=== PATIENT | female | born 1960 | race Two or more races ===

== ENCOUNTER 2017-10-20 18:45 | Inpatient (IN) | payer MEDICARE, MEDICAID ==
[~2017-10-20] VITALS: Ht 162.6 cm; Wt 88.5 kg
[2017-10-20] MEDS ORDERED: SODIUM CHLORIDE 0.9% 1,000 ML IV ONE (20:00)
[2017-10-20 20:28] LABS: CHLORIDE 96 mEq/L (98-107)
[2017-10-20 20:31] LABS: BASOPHILS % 0.4 % (0.0-2.0); EOSINOPHILS % 2.2 % (0.0-5.0); HEMATOCRIT. 34.9 % (36.0-48.0); HEMOGLOBIN. 11.8 g/dL (12.0-16.0); LYMPHOCYTES % 33.5 % (20.0-50.0); MEAN CORPUSCULAR HEMOGLOBIN 30.2 pg (28.0-32.0); MEAN PLATELET VOLUME 10.3 fl (7.4-10.4); MONOCYTES % 14.1 % (2.0-8.0); NEUTROPHILS % 49.8 % (40.0-76.0); PLATELET 204 x1000/uL (130-400); RED BLOOD CELL COUNT 3.92 mill/uL (4.2-5.4); RED CELL DISTRIBUTION WIDTH 13.1 % (11.6-14.6)
[2017-10-20 20:32] LABS: INR 2.7; PARTIAL THROMBOPLASTIN TIME 41.1 sec (23.4-31.0); PROTHROMBIN TIME 28.1 sec (9.4-11.6)
[2017-10-20 20:35] LABS: BETA HYDROXYBUTYRATE 0.1 mMol/L (0.0-0.3)
[2017-10-20] MEDS ORDERED: INSULIN REGULAR (HUMULIN R) 300UNITS/3ML SUBCUT ONE ×2 (22:45→23:30)
[2017-10-20] MEDS ORDERED: IPRATROPIUM/ALBUTEROL 0.5-3(2.5)MG/3ML NEB INH PRN (23:15)
[2017-10-20] MEDS ORDERED: DOCUSATE SODIUM 100MG CAPSULE PO PRN (23:15)
[2017-10-20] MEDS ORDERED: CLONIDINE 0.1MG TABLET PO PRN (23:15)
[2017-10-20] MEDS ORDERED: HYDROCODONE/ACETAMINOPHEN 5/325MG TABLET PO PRN (23:15)
[2017-10-20] MEDS ORDERED: ONDANSETRON HCL 4MG/2ML VIAL IV PRN (23:15)
[2017-10-20] MEDS ORDERED: ACETAMINOPHEN 325MG TABLET PO PRN (23:15)
[2017-10-20] MEDS ORDERED: MAGNESIUM/ALUMINUM HYDROXIDE/SIMETHICONE 30ML UDC PO PRN (23:15)
[2017-10-21] VITALS (10 sets, daily range): BP systolic 98–133; BP diastolic 43–73
[2017-10-21 00:50] LABS: CLARITY URINE CLEAR (CLEAR); COLOR URINE YELLOW (YELLOW); KETONES URINE NEGATIVE (NEGATIVE); LEUKOCYTE ESTERASE URINE NEGATIVE (NEGATIVE); NITRITE URINE NEGATIVE (NEGATIVE); OCCULT BLOOD URINE NEGATIVE (NEGATIVE); PROTEIN URINE TRACE (NEGATIVE); SPECIFIC GRAVITY URINE 1.018 (1.005-1.030); UROBILINOGEN URINE 0.2 E.U./dL (0.2-1.0)
[2017-10-21 00:58] LABS: *AMPHETAMINES SCREEN URINE NEGATIVE (NEGATIVE); *BARBITURATES SCREEN URINE NEGATIVE (NEGATIVE); *BENZODIAZEPINES SCREEN URINE NEGATIVE (NEGATIVE)
[2017-10-21 01:00] LABS: *COCAINE SCREEN URINE NEGATIVE (NEGATIVE); CANNABINOID URINE SCREEN NEGATIVE (NEGATIVE); METHADONE URINE SCREEN NEGATIVE (NEGATIVE); OPIATES URINE SCREEN PRESUMTIVE POSITIVE (NEGATIVE); PHENCYCLIDINE URINE SCREEN NEGATIVE (NEGATIVE)
[2017-10-21] MEDS: SODIUM CHLORIDE 0.9% 1,000 ML IV SCH ×3 (02:30→23:18)
[2017-10-21] MEDS ORDERED: DEXTROSE 50% WATER 50ML SYRINGE IV PRN (03:30)
[2017-10-21] MEDS ORDERED: GEMF600T3 PO (04:22)
[2017-10-21] MEDS ORDERED: GLIM1TAB2 MT (04:22)
[2017-10-21] MEDS ORDERED: GABA-531 MT (04:23)
[2017-10-21] MEDS ORDERED: WARF-53 MT (04:23)
[2017-10-21] MEDS ORDERED: FURO40TA5 MT (04:23)
[2017-10-21] MEDS ORDERED: LISI40TA4 PO (04:27)
[2017-10-21] MEDS ORDERED: INSU100I22 SQ (04:27)
[2017-10-21] MEDS ORDERED: CALC1TAB99 PO (04:27)
[2017-10-21 06:06] LABS: BASOPHILS % 0.6 % (0.0-2.0); EOSINOPHILS % 3.3 % (0.0-5.0); HEMATOCRIT. 33.5 % (36.0-48.0); HEMOGLOBIN. 11.2 g/dL (12.0-16.0); INR 2.7; LYMPHOCYTES % 40.2 % (20.0-50.0); MEAN CORPUSCULAR VOLUME 89.2 fL (81.0-99.0); MEAN PLATELET VOLUME 10.1 fl (7.4-10.4); NEUTROPHILS % 43.9 % (40.0-76.0); PLATELET 183 x1000/uL (130-400); PROTHROMBIN TIME 28.7 sec (9.4-11.6); RED BLOOD CELL COUNT 3.75 mill/uL (4.2-5.4); RED CELL DISTRIBUTION WIDTH 12.9 % (11.6-14.6)
[2017-10-21] MEDS: BLOOD SUGAR DIAGNOSTIC STRIP TEST SCH ×4 (06:22→21:11)
[2017-10-21 06:43] LABS: CREATINE KINASE 102 IU/L (26-192)
[2017-10-21 06:45] LABS: LDL CHOLESTEROL 165 mg/dL (5-100)
[2017-10-21 06:47] LABS: CREATINE KINASE MB FRACTION 1.2 ng/mL (0.5-3.6)
[2017-10-21 06:48] LABS: HDL CHOLESTEROL 33 mg/dL (40-59)
[2017-10-21] MEDS: INSULIN LISPRO 100 UNITS/ML SUBCUT SCH ×4 (07:42→21:11)
[2017-10-21] MEDS ORDERED: DIPHENHYDRAMINE 50MG/ML VIAL IV PRN (08:15)
[2017-10-21] MEDS ORDERED: LORAZEPAM 0.5MG TABLET PO PRN (08:15)
[2017-10-21] MEDS ORDERED: CLONIDINE 0.1MG TABLET PO PRN (08:15)
[2017-10-21] MEDS ORDERED: HYDROCODONE/ACETAMINOPHEN 10/325MG TABLET PO PRN (08:15)
[2017-10-21] MEDS ORDERED: ACETAMINOPHEN 325MG TABLET PO PRN (08:15)
[2017-10-21] MEDS ORDERED: ACETAMINOPHEN 650MG SUPP PR PRN (08:15)
[2017-10-21] MEDS ORDERED: ONDANSETRON HCL 4MG/2ML VIAL IV PRN (08:15)
[2017-10-21] MEDS ORDERED: ACETAMINOPHEN 650MG/20.3ML UDC GT PRN (08:15)
[2017-10-21] MEDS ORDERED: NA PHOS,M-B/NA PHOS,DI-BA ENEMA 118ML PR PRN (08:15)
[2017-10-21] MEDS ORDERED: DOCUSATE SODIUM 100MG CAPSULE PO PRN (08:15)
[2017-10-21] MEDS ORDERED: GUAIFENESIN 200MG/10ML SUGAR FREE UDC PO PRN (08:15)
[2017-10-21] MEDS ORDERED: MAGNESIUM/ALUMINUM HYDROXIDE/SIMETHICONE 30ML UDC PO PRN (08:15)
[2017-10-21] MEDS ORDERED: IPRATROPIUM/ALBUTEROL 0.5-3(2.5)MG/3ML NEB INH PRN (08:15)
[2017-10-21] MEDS ORDERED: HYDROCODONE/ACETAMINOPHEN 5/325MG TABLET PO PRN (08:15)
[2017-10-21] MEDS ORDERED: GABAPENTIN 300MG CAPSULE PO SCH ×2 (09:00→21:00)
[2017-10-21] MEDS ORDERED: GEMFIBROZIL 600MG TABLET PO SCH (09:00)
[2017-10-21] MEDS ORDERED: WARFARIN SODIUM 5MG TABLET PO SCH ×2 (09:00→18:00)
[2017-10-21] MEDS ORDERED: LISINOPRIL 40MG TABLET PO SCH (09:00)
[2017-10-21] MEDS ORDERED: INSULIN GLARGINE UD 100 UNITS/ML SYR SUBCUT SCH ×3 (11:00→22:00)
[2017-10-21] MEDS: FENOFIBRATE NANOCRYSTALLIZED 48MG TABLET PO SCH (12:01)
[2017-10-21 15:16] LABS: CREATINE KINASE 112 IU/L (26-192)
[2017-10-21 15:17] LABS: CREATINE KINASE MB FRACTION 1.5 ng/mL (0.5-3.6)
[2017-10-21 19:15] LABS: FOLIC ACID (FOLATE) SERUM 9.9 ng/mL (>5.38)
[2017-10-21] MEDS ORDERED: ATORVASTATIN CALCIUM 40MG TABLET PO SCH (21:00)
[2017-10-22] VITALS: BP 107/52
[2017-10-22 04:00] VITALS: BP 103/50
[2017-10-22] MEDS: INSULIN LISPRO 100 UNITS/ML SUBCUT SCH ×6 (06:23→17:32)
[2017-10-22] MEDS: BLOOD SUGAR DIAGNOSTIC STRIP TEST SCH ×3 (06:25→17:03)
[2017-10-22 07:08] LABS: INR 2.7; PROTHROMBIN TIME 28.1 sec (9.4-11.6)
[2017-10-22 07:53] LABS: CHLORIDE 109 mEq/L (98-107)
[2017-10-22 08:03] LABS: T4 FREE 0.95 ng/dL (0.76-1.46)
[2017-10-22 08:06] LABS: LDL CHOLESTEROL 158 mg/dL (5-100)
[2017-10-22 08:07] LABS: HDL CHOLESTEROL 31 mg/dL (40-59); PHOSPHORUS 3.1 mg/dL (2.5-4.9)
[2017-10-22] MEDS: SODIUM CHLORIDE 0.9% 1,000 ML IV SCH (08:37)
[2017-10-22 08:40] VITALS: BP 98/45
[2017-10-22 09:00] LABS: BASOPHILS % 0.9 % (0.0-2.0); EOSINOPHILS % 3.4 % (0.0-5.0); HEMOGLOBIN. 11.1 g/dL (12.0-16.0); MEAN CORPUSCULAR HEMOGLOBIN 30.2 pg (28.0-32.0); MEAN CORPUSCULAR VOLUME 92.6 fL (81.0-99.0); MEAN PLATELET VOLUME 9.7 fl (7.4-10.4); MONOCYTES % 13.5 % (2.0-8.0); NEUTROPHILS % 51.2 % (40.0-76.0); PLATELET 168 x1000/uL (130-400); RED BLOOD CELL COUNT 3.67 mill/uL (4.2-5.4); RED CELL DISTRIBUTION WIDTH 13.3 % (11.6-14.6)
[2017-10-22] MEDS ORDERED: INSULIN GLARGINE UD 100 UNITS/ML SYR SUBCUT SCH ×2 (10:00→22:00)
[2017-10-22] MEDS: FENOFIBRATE NANOCRYSTALLIZED 48MG TABLET PO SCH (10:43)
[2017-10-22 12:07] VITALS: BP 142/58
[2017-10-22 13:34] LABS: T4 FREE 1.01 ng/dL (0.76-1.46)
[2017-10-22 16:11] VITALS: BP 131/65
[2017-10-22] MEDS ORDERED: LANTUSUD SUBCUT (17:38)
[2017-10-22] MEDS ORDERED: INSLIS SUBCUT (17:38)
[2017-10-22] MEDS ORDERED: LIP40 PO (17:38)
[2017-10-22] MEDS ORDERED: FENO48 PO (17:38)
[2017-10-22] MEDS ORDERED: WARFARIN SODIUM 5MG TABLET PO SCH (18:00)
[2017-10-22 18:57] VITALS: BP 120/72
[2017-10-23] MEDS ORDERED: INSULIN LISPRO 100 UNITS/ML SUBCUT SCH (07:10)
[2017-10-23] MEDS ORDERED: GLIMEPIRIDE 2MG TABLET PO SCH (07:40)
[2017-10-23] MEDS ORDERED: INSULIN GLARGINE UD 100 UNITS/ML SYR SUBCUT SCH (10:00)
== END 2017-10-22 20:00 | disposition home or self-care (01) | DRG 682 ==
LOC: ER 20:00 → 3WST 23:29 → ENRESERV 10-21 01:56 → 8WST 10-21 21:26
PROVIDERS: ADMIT Internal Medicine; ATTEND Internal Medicine
DX: N17.0 Acute kidney failure with tubular necrosis (principal); E11.00 Type 2 diabetes mellitus with hyperosmolarity without nonketotic hyperglycemic-hyperosmolar coma (NKHHC); I95.9 Hypotension, unspecified; E11.42 Type 2 diabetes mellitus with diabetic polyneuropathy; E11.22 Type 2 diabetes mellitus with diabetic chronic kidney disease; E87.0 Hyperosmolality and hypernatremia; E87.1 Hypo-osmolality and hyponatremia; I13.0 Hypertensive heart and chronic kidney disease with heart failure and stage 1 through stage 4 chronic kidney disease, or unspecified chronic kidney disease; M94.0 Chondrocostal junction syndrome [Tietze]; E11.65 Type 2 diabetes mellitus with hyperglycemia; I48.91 Unspecified atrial fibrillation; I50.9 Heart failure, unspecified; E78.5 Hyperlipidemia, unspecified; E86.1 Hypovolemia; M54.5 Low back pain; N18.9 Chronic kidney disease, unspecified; J44.9 Chronic obstructive pulmonary disease, unspecified; D64.9 Anemia, unspecified; R26.9 Unspecified abnormalities of gait and mobility; E03.9 Hypothyroidism, unspecified; E66.9 Obesity, unspecified; E78.00 Pure hypercholesterolemia, unspecified; F17.210 Nicotine dependence, cigarettes, uncomplicated; I05.0 Rheumatic mitral stenosis; Z79.01 Long term (current) use of anticoagulants; Z79.899 Other long term (current) drug therapy; Z82.49 Family history of ischemic heart disease and other diseases of the circulatory system; Z79.4 Long term (current) use of insulin; Z83.3 Family history of diabetes mellitus; Z85.3 Personal history of malignant neoplasm of breast; Z86.73 Personal history of transient ischemic attack (TIA), and cerebral infarction without residual deficits; Z92.21 Personal history of antineoplastic chemotherapy; Z95.2 Presence of prosthetic heart valve; Z88.8 Allergy status to other drugs, medicaments and biological substances; Z68.33 Body mass index [BMI] 33.0-33.9, adult
CPT/HCPCS: 36415; 70450; 70551; 71045; 72141; 72148; 76770; 80048; 80053; 80061; 80305; 81003; 82010; 82550; 82553; 82607; 82746; 82962; 83036; 83690; 83735; 83880; 84100; 84439; 84443; 84481; 84484; 85025; 85610; 85730; 93005; 93306; 93970; 96372; 97162; 97166; 99285; J1815; J7030

== ENCOUNTER 2018-02-27 18:44 | Inpatient (IN) | payer MEDICARE, MEDICAID ==
[~2018-02-27] VITALS: Ht 162.6 cm; Wt 85.7 kg
[~2018-02-27 18:44] MED LIST: AMA2 PO; CALC1TAB99 PO; FURO40TA5 MT; GABA-531 MT; INSLIS SUBCUT; LANTUSUD SUBCUT; METF500T PO; NICO-786 TD; WARF-53 MT
[2018-02-27 19:47] LABS: HEMATOCRIT. 31.5 % (36.0-48.0); HEMOGLOBIN. 10.1 g/dL (12.0-16.0); MEAN CORPUSCULAR HEMOGLOBIN 26.3 pg (28.0-32.0); MEAN CORPUSCULAR VOLUME 81.7 fL (81.0-99.0); MEAN PLATELET VOLUME 7.8 fl (7.4-10.4); PLATELET 383 x1000/uL (130-400); RED BLOOD CELL COUNT 3.85 mill/uL (4.2-5.4); RED CELL DISTRIBUTION WIDTH 17.5 % (11.6-14.6)
[2018-02-27 20:03] LABS: CHLORIDE 108 mEq/L (98-107)
[2018-02-27 21:02] LABS: PLATELET ESTIMATE NORMAL
[2018-02-27] MEDS ORDERED: FUROSEMIDE 40MG/4ML VIAL IVP ONE (21:30)
[2018-02-27] MEDS ORDERED: NA PHOS,M-B/NA PHOS,DI-BA ENEMA 118ML PR PRN (22:30)
[2018-02-27] MEDS ORDERED: GUAIFENESIN 200MG/10ML SUGAR FREE UDC PO PRN (22:30)
[2018-02-27] MEDS ORDERED: LORAZEPAM 2MG/ML CPJ IV PRN (22:30)
[2018-02-27] MEDS ORDERED: HYDROCODONE/ACETAMINOPHEN 5/325MG TABLET PO PRN (22:30)
[2018-02-27] MEDS ORDERED: MAGNESIUM/ALUMINUM HYDROXIDE/SIMETHICONE 30ML UDC PO PRN (22:30)
[2018-02-27] MEDS ORDERED: IPRATROPIUM/ALBUTEROL 0.5-3(2.5)MG/3ML NEB INH PRN (22:30)
[2018-02-27 23:20] LABS: PROTHROMBIN TIME > 100.0 sec (9.1-11.1)
[2018-02-27 23:25] LABS: INR > 10.0
[2018-02-28] VITALS (20 sets, daily range): BP systolic 91–175; BP diastolic 36–79
[2018-02-28] MEDS ORDERED: ONDANSETRON HCL 4MG/2ML INJ IV PRN (00:50)
[2018-02-28] MEDS: MORPHINE SULFATE 4 MG/ML CPJ (NOT FOR IM USE) IV PRN ×3 (01:08→07:17)
[2018-02-28 05:46] LABS: CHLORIDE 108 mEq/L (98-107)
[2018-02-28 05:57] LABS: LDL CHOLESTEROL 121 mg/dL (5-100)
[2018-02-28 05:58] LABS: CREATINE KINASE 112 IU/L (26-192)
[2018-02-28 05:59] LABS: HDL CHOLESTEROL 15 mg/dL (40-59); T4 FREE 1.37 ng/dL (0.76-1.46)
[2018-02-28] MEDS ORDERED: PHYTONADIONE 10 MG in DEXTROSE 5% WATER 50 ML IV NR (10:00)
[2018-02-28] MEDS ORDERED: DEXTROSE 50% WATER 50ML SYRINGE IV PRN (11:30)
[2018-02-28] MEDS: BLOOD SUGAR DIAGNOSTIC STRIP TEST SCH ×3 (11:40→21:24)
[2018-02-28] MEDS: CALCIUM CARBONATE 1250MG TABLET (500MG ELEMENTAL CALCIUM) PO SCH (12:22)
[2018-02-28] MEDS: FUROSEMIDE 40MG/4ML VIAL IV SCH (12:22)
[2018-02-28] MEDS: INSULIN LISPRO 100 UNITS/ML SUBCUT SCH ×3 (13:35→21:25)
[2018-02-28] MEDS: GABAPENTIN 300MG CAPSULE PO SCH ×2 (13:36→21:24)
[2018-02-28] MEDS ORDERED: SUCCINYLCHOLINE CHLORIDE 200MG/10ML VIAL IV ONE (19:16)
[2018-02-28] MEDS ORDERED: AMIODARONE HCL 50MG/ML 3ML VIAL IV ONE (19:16)
[2018-02-28] MEDS ORDERED: EPINEPHRINE 0.1MG/ML (1:10,000) 10ML SYR ONE (19:16)
[2018-02-28 20:03] LABS: CREATINE KINASE MB FRACTION 1.4 ng/mL (0.5-3.6)
[2018-02-28 21:01] LABS: BG BASE EXCESS -14.2 mmol/L (-2.0-2.0); BG CARBOXYHEMOGLOBIN 0.3 % (0.5-1.5); BG FRACTION INSPIRED OXYGEN 100; BG HCO3 ACT 11.3 mmol/L (22.0-26.0); BG METHEMOGLOBIN 0.4 % (0.0-1.5); BG OXYHEMOGLOBIN 98.3 % (94.0-97.0); BG PCO2 25.8 mmHg (35.0-45.0); BG PH 7.261 (7.350-7.450); BG PO2 219.3 mmHg (75.0-100.0); BG SAMPLE SITE RIGHT RADIAL; BG TIDAL VOLUME(mL) 500 mL; BG TOTAL HEMOGLOBIN 9.5 g/dL (12.0-18.0); BG VENT MODE VENT - A/C; BG VENT RATE 14 set
[2018-02-28] MEDS ORDERED: SODIUM BICARBONATE 8.4% 1 MEQ/ML 50ML SYR IV NR (21:09)
[2018-02-28] MEDS ORDERED: IPRATROPIUM BROMIDE (0.02%) 0.5MG/2.5ML NEB HHN PRN (21:15)
[2018-03-01] VITALS (96 sets, daily range): BP systolic 91–176; BP diastolic 38–99
[2018-03-01] MEDS: PROPOFOL 10MG/ML 100ML 100 ML IV PRN ×3 (00:12→08:29)
[2018-03-01] MEDS: ACETYLCYSTEINE 100MG/ML 10% VIAL 4ML INH SCH ×3 (00:43→15:47)
[2018-03-01] MEDS: IPRATROPIUM BROMIDE (0.02%) 0.5MG/2.5ML NEB HHN SCH ×4 (00:43→20:02)
[2018-03-01] MEDS: GABAPENTIN 300MG CAPSULE PO SCH ×3 (05:03→22:00)
[2018-03-01 05:44] LABS: INR 1.6
[2018-03-01] MEDS: BLOOD SUGAR DIAGNOSTIC STRIP TEST SCH ×13 (06:39→20:30)
[2018-03-01] MEDS: CLONIDINE 0.1MG TABLET PO PRN (06:39)
[2018-03-01] MEDS ORDERED: INSULIN LISPRO 100 UNITS/ML SUBCUT SCH (07:00)
[2018-03-01] MEDS: DIPHENHYDRAMINE 50MG/ML VIAL IV PRN (08:28)
[2018-03-01] MEDS: DOCUSATE SODIUM 100MG CAPSULE PO PRN (08:28)
[2018-03-01] MEDS: FUROSEMIDE 40MG/4ML VIAL IV SCH (08:28)
[2018-03-01 08:33] LABS: BG CARBOXYHEMOGLOBIN 0.4 % (0.5-1.5); BG DEOXYHEMOGLOBIN 2.5 % (0.0-5.0); BG FRACTION INSPIRED OXYGEN 50; BG HCO3 ACT 18.9 mmol/L (22.0-26.0); BG METHEMOGLOBIN 0.3 % (0.0-1.5); BG OXYGEN SATURATION 97.5 % (92.0-98.5); BG OXYHEMOGLOBIN 96.8 % (94.0-97.0); BG PCO2 26.8 mmHg (35.0-45.0); BG PH 7.467 (7.350-7.450); BG PO2 100.7 mmHg (75.0-100.0); BG SAMPLE SITE RIGHT RADIAL; BG TIDAL VOLUME(mL) 500 mL; BG TOTAL HEMOGLOBIN 8.2 g/dL (12.0-18.0); BG VENT MODE VENT - A/C; BG VENT RATE 16 set
[2018-03-01] MEDS: ENOXAPARIN 100MG/ML SYR SUBCUT SCH ×2 (08:36→18:57)
[2018-03-01] MEDS ORDERED: PANTOPRAZOLE SODIUM 40 MG/VIAL IV SCH (09:00)
[2018-03-01] MEDS: CALCIUM CARBONATE 1250MG TABLET (500MG ELEMENTAL CALCIUM) PO SCH (09:10)
[2018-03-01] MEDS ORDERED: DEXTROSE 50% WATER 50ML SYRINGE IV PRN ×2 (09:30)
[2018-03-01 09:42] LABS: BASOPHILS % 0.4 % (0.0-2.0); EOSINOPHILS % 0.1 % (0.0-5.0); HEMATOCRIT. 25.1 % (36.0-48.0); LYMPHOCYTES % 10.8 % (20.0-50.0); MEAN CORPUSCULAR HEMOGLOBIN 26.7 pg (28.0-32.0); MEAN CORPUSCULAR VOLUME 84.1 fL (81.0-99.0); MEAN PLATELET VOLUME 8.6 fl (7.4-10.4); NEUTROPHILS % 80.7 % (40.0-76.0); PLATELET 384 x1000/uL (130-400); RED BLOOD CELL COUNT 2.99 mill/uL (4.2-5.4); RED CELL DISTRIBUTION WIDTH 18.4 % (11.6-14.6)
[2018-03-01 09:47] LABS: CHLORIDE 105 mEq/L (98-107)
[2018-03-01] MEDS ORDERED: INSULIN REGULAR (DRIP) 100 UNITS in SODIUM CHLORIDE 0.9% 99 ML IV PRN (10:00)
[2018-03-01] MEDS ORDERED: VANCOMYCIN IV SCH (11:00)
[2018-03-01] MEDS ORDERED: WATER IV SCH (11:00)
[2018-03-01] MEDS ORDERED: DEXTROSE 5% IV SCH (11:00)
[2018-03-01] MEDS: PIPERACILLIN/TAZ 3.375G PREMIX 50 ML IV SCH ×3 (11:22→22:16)
[2018-03-01] MEDS: FENTANYL CITRATE/PF 500 MCG in SODIUM CHLORIDE 0.9% 40 ML IV PRN ×2 (11:49→17:05)
[2018-03-01] MEDS: MIDAZOLAM HCL 100 MG in DEXT 5% WATER 80 ML IV PRN ×2 (11:51→23:52)
[2018-03-01 13:05] LABS: HEMATOCRIT 22.2 % (36.0-48.0); HEMOGLOBIN 7.2 g/dL (12.0-16.0)
[2018-03-01 13:14] LABS: CHLORIDE 105 mEq/L (98-107)
[2018-03-01] MEDS: ACETAMINOPHEN 325MG TABLET PO PRN (13:19)
[2018-03-01 14:34] LABS: CREATINE KINASE MB FRACTION 2.7 ng/mL (0.5-3.6)
[2018-03-01] MEDS ORDERED: LIDOCAINE HCL 1% 10 MG/ML 10ML VIAL ONE (14:34)
[2018-03-01] MEDS ORDERED: SODIUM BICARBONATE 4% (2.4MEQ) 5ML VIAL IV ONE (14:35)
[2018-03-01] MEDS ORDERED: HEPARIN 1000 UNITS/ML 10ML ONE (14:35)
[2018-03-01] MEDS ORDERED: IOHEXOL-300 100 ML BOTTLE ONE (14:35)
[2018-03-01] MEDS: PANTOPRAZOLE SODIUM 40 MG/VIAL IV SCH (17:02)
[2018-03-01 17:14] LABS: TOTAL IRON BINDING CAPACITY 253 ug/dL (250-450)
[2018-03-01] MEDS: OCTREOTIDE 1,000 MCG in SODIUM CHLORIDE 0.9% 98 ML IV SCH (17:18)
[2018-03-01 19:05] LABS: HEMOGLOBIN 7.8 g/dL (12.0-16.0)
[2018-03-01 19:13] LABS: AMMONIA 47 uMol/L (<32)
[2018-03-01 19:14] LABS: CLARITY URINE CLOUDY (CLEAR); COLOR URINE DARK YELLOW (YELLOW); KETONES URINE NEGATIVE (NEGATIVE); LEUKOCYTE ESTERASE URINE 1+ (NEGATIVE); NITRITE URINE NEGATIVE (NEGATIVE); OCCULT BLOOD URINE 2+ (NEGATIVE); PROTEIN URINE 2+ (NEGATIVE); SPECIFIC GRAVITY URINE 1.018 (1.005-1.030)
[2018-03-01 19:48] LABS: *AMPHETAMINES SCREEN URINE NEGATIVE (NEGATIVE); *BARBITURATES SCREEN URINE NEGATIVE (NEGATIVE)
[2018-03-01 19:49] LABS: *BENZODIAZEPINES SCREEN URINE PRESUMTIVE POSITIVE (NEGATIVE); *COCAINE SCREEN URINE NEGATIVE (NEGATIVE); CANNABINOID URINE SCREEN NEGATIVE (NEGATIVE); METHADONE URINE SCREEN NEGATIVE (NEGATIVE); OPIATES URINE SCREEN PRESUMTIVE POSITIVE (NEGATIVE); PHENCYCLIDINE URINE SCREEN NEGATIVE (NEGATIVE)
[2018-03-01 19:58] LABS: FERRITIN 1073 ng/mL (10-291)
[2018-03-01 20:03] LABS: FOLIC ACID (FOLATE) SERUM > 20.00 ng/mL (>5.38); VITAMIN B12 SERUM 271 pg/mL (211-911)
[2018-03-01 20:06] LABS: HEPATITIS B SURFACE ANTIGEN NEGATIVE
[2018-03-01] MEDS: INSULIN LISPRO 100 UNITS/ML SUBCUT SCH (20:30)
[2018-03-01 20:34] LABS: HEPATITIS B CORE AB IGM NEGATIVE
[2018-03-01 20:36] LABS: HEPATITIS A AB IGM NEGATIVE (NEGATIVE)
[2018-03-01] MEDS: DEXT 5%/0.45% NACL 1000ML 1,000 ML IV SCH (21:44)
[2018-03-02] VITALS (74 sets, daily range): BP systolic 92–172; BP diastolic 18–82
[2018-03-02] MEDS: BLOOD SUGAR DIAGNOSTIC STRIP TEST SCH ×7 (00:03→23:59)
[2018-03-02] MEDS: INSULIN LISPRO 100 UNITS/ML SUBCUT SCH ×6 (00:11→20:42)
[2018-03-02] MEDS: FENTANYL CITRATE/PF 500 MCG in SODIUM CHLORIDE 0.9% 40 ML IV PRN ×3 (00:16→20:46)
[2018-03-02 00:53] LABS: HEMATOCRIT 26.4 % (36.0-48.0); HEMOGLOBIN 8.5 g/dL (12.0-16.0)
[2018-03-02] MEDS: IPRATROPIUM BROMIDE (0.02%) 0.5MG/2.5ML NEB HHN SCH ×4 (01:33→21:10)
[2018-03-02] MEDS: ACETYLCYSTEINE 100MG/ML 10% VIAL 4ML INH SCH ×4 (01:35→21:11)
[2018-03-02] MEDS: CLONIDINE 0.1MG TABLET PO PRN (02:49)
[2018-03-02] MEDS: PIPERACILLIN/TAZ 3.375G PREMIX 50 ML IV SCH ×4 (03:40→21:22)
[2018-03-02] MEDS ORDERED: VANCOMYCIN 1 G PREMIX 200 ML IV SCH (05:00)
[2018-03-02] MEDS: GABAPENTIN 300MG CAPSULE PO SCH ×3 (05:54→21:22)
[2018-03-02 06:18] LABS: HEMATOCRIT. 24.7 % (36.0-48.0); HEMOGLOBIN. 7.9 g/dL (12.0-16.0); MEAN CORPUSCULAR HEMOGLOBIN 26.9 pg (28.0-32.0); MEAN CORPUSCULAR VOLUME 83.9 fL (81.0-99.0); PLATELET 348 x1000/uL (130-400); RED BLOOD CELL COUNT 2.94 mill/uL (4.2-5.4); RED CELL DISTRIBUTION WIDTH 17.4 % (11.6-14.6)
[2018-03-02 06:38] LABS: CREATINE KINASE MB FRACTION 2.8 ng/mL (0.5-3.6)
[2018-03-02] MEDS: ENOXAPARIN 100MG/ML SYR SUBCUT SCH (08:13)
[2018-03-02] MEDS: DOCUSATE SODIUM 100MG CAPSULE PO PRN (08:24)
[2018-03-02] MEDS: FUROSEMIDE 40MG/4ML VIAL IV SCH (08:24)
[2018-03-02] MEDS: DIPHENHYDRAMINE 50MG/ML VIAL IV PRN (08:24)
[2018-03-02] MEDS: PANTOPRAZOLE SODIUM 40 MG/VIAL IV SCH ×2 (08:25→17:24)
[2018-03-02] MEDS: CALCIUM CARBONATE 1250MG TABLET (500MG ELEMENTAL CALCIUM) PO SCH (08:41)
[2018-03-02] MEDS: MIDAZOLAM HCL 100 MG in DEXT 5% WATER 80 ML IV PRN ×2 (08:42→20:47)
[2018-03-02] MEDS: OCTREOTIDE 1,000 MCG in SODIUM CHLORIDE 0.9% 98 ML IV SCH (10:38)
[2018-03-02] MEDS ORDERED: HEPARIN SODIUM 1,000 UNIT/1ML VIAL IV SCH (12:00)
[2018-03-02 15:31] LABS: BG CARBOXYHEMOGLOBIN 0.3 % (0.5-1.5); BG DEOXYHEMOGLOBIN 1.6 % (0.0-5.0); BG METHEMOGLOBIN 0.5 % (0.0-1.5); BG OXYGEN SATURATION 98.4 % (92.0-98.5); BG OXYHEMOGLOBIN 97.6 % (94.0-97.0); BG PCO2 34.7 mmHg (35.0-45.0); BG PO2 137.8 mmHg (75.0-100.0); BG SAMPLE SITE RIGHT RADIAL; BG TIDAL VOLUME(mL) 500 mL; BG TOTAL HEMOGLOBIN 10.8 g/dL (12.0-18.0); BG VENT MODE VENT - A/C; BG VENT RATE 16 set
[2018-03-02 16:17] LABS: PLATELET ESTIMATE NORMAL
[2018-03-02] MEDS ORDERED: VANCOMYCIN 1500MG in DEXTROSE 5% WATER 250ML IV NR (18:00)
[2018-03-02 19:35] LABS: HEMATOCRIT 30.3 % (36.0-48.0); HEMOGLOBIN 9.9 g/dL (12.0-16.0)
[2018-03-02] MEDS: DEXT 5%/0.45% NACL 1000ML 1,000 ML IV SCH (20:44)
[2018-03-02] MEDS: MORPHINE SULFATE 4 MG/ML CPJ (NOT FOR IM USE) IV PRN ×2 (20:48→23:01)
[2018-03-03] VITALS (30 sets, daily range): BP systolic 99–161; BP diastolic 45–72
[2018-03-03] MEDS: INSULIN LISPRO 100 UNITS/ML SUBCUT SCH ×6 (00:02→20:20)
[2018-03-03] MEDS: IPRATROPIUM BROMIDE (0.02%) 0.5MG/2.5ML NEB HHN SCH ×4 (00:25→20:46)
[2018-03-03] MEDS: MORPHINE SULFATE 4 MG/ML CPJ (NOT FOR IM USE) IV PRN ×5 (01:24→22:47)
[2018-03-03] MEDS: BLOOD SUGAR DIAGNOSTIC STRIP TEST SCH ×5 (04:00→20:16)
[2018-03-03] MEDS: PIPERACILLIN/TAZ 3.375G PREMIX 50 ML IV SCH ×2 (04:06→05:02)
[2018-03-03] MEDS: OCTREOTIDE 1,000 MCG in SODIUM CHLORIDE 0.9% 98 ML IV SCH (05:02)
[2018-03-03] MEDS: GABAPENTIN 300MG CAPSULE PO SCH ×3 (05:03→21:48)
[2018-03-03 06:29] LABS: BASOPHILS % 0.3 % (0.0-2.0); EOSINOPHILS % 3.2 % (0.0-5.0); HEMATOCRIT. 28.2 % (36.0-48.0); HEMOGLOBIN. 9.3 g/dL (12.0-16.0); LYMPHOCYTES % 12.2 % (20.0-50.0); MEAN CORPUSCULAR HEMOGLOBIN 27.7 pg (28.0-32.0); MEAN CORPUSCULAR VOLUME 84.4 fL (81.0-99.0); MEAN PLATELET VOLUME 8.4 fl (7.4-10.4); MONOCYTES % 12.7 % (2.0-8.0); NEUTROPHILS % 71.6 % (40.0-76.0); PLATELET 349 x1000/uL (130-400); RED BLOOD CELL COUNT 3.35 mill/uL (4.2-5.4)
[2018-03-03 06:31] LABS: INR 1.6; PARTIAL THROMBOPLASTIN TIME 41.7 sec (23.4-31.0); PROTHROMBIN TIME 16.1 sec (9.1-11.1)
[2018-03-03 06:43] LABS: AMMONIA 52 uMol/L (<32)
[2018-03-03 06:46] LABS: PHOSPHORUS 3.4 mg/dL (2.5-4.9)
[2018-03-03 07:25] LABS: BG BASE EXCESS 1.2 mmol/L (-2.0-2.0); BG DEOXYHEMOGLOBIN 1.9 % (0.0-5.0); BG FRACTION INSPIRED OXYGEN 40; BG HCO3 ACT 24.8 mmol/L (22.0-26.0); BG METHEMOGLOBIN 0.2 % (0.0-1.5); BG OXYGEN SATURATION 98.1 % (92.0-98.5); BG OXYHEMOGLOBIN 97.9 % (94.0-97.0); BG PCO2 34.8 mmHg (35.0-45.0); BG PO2 104.1 mmHg (75.0-100.0); BG SAMPLE SITE RIGHT RADIAL; BG TIDAL VOLUME(mL) 500 mL; BG TOTAL HEMOGLOBIN 8.6 g/dL (12.0-18.0); BG VENT MODE VENT - A/C; BG VENT RATE 16 set
[2018-03-03] MEDS: ACETYLCYSTEINE 100MG/ML 10% VIAL 4ML INH SCH ×2 (08:11→14:17)
[2018-03-03] MEDS: PANTOPRAZOLE SODIUM 40 MG/VIAL IV SCH ×2 (09:44→16:49)
[2018-03-03] MEDS: CALCIUM CARBONATE 1250MG TABLET (500MG ELEMENTAL CALCIUM) PO SCH (09:45)
[2018-03-03] MEDS: FENTANYL CITRATE/PF 500 MCG in SODIUM CHLORIDE 0.9% 40 ML IV PRN (12:35)
[2018-03-03] MEDS: PIPERACILLIN/TAZ 2.25G PREMIX 50 ML IV SCH (18:08)
[2018-03-03] MEDS: MIDAZOLAM HCL 100 MG in DEXT 5% WATER 80 ML IV PRN (18:39)
[2018-03-03] MEDS: DEXT 5%/0.45% NACL 1000ML 1,000 ML IV SCH (20:10)
[2018-03-03] MEDS ORDERED: PIPERACILLIN/TAZ 2.25G PREMIX 50 ML IV SCH (22:00)
[2018-03-04] VITALS (76 sets, daily range): BP systolic 106–159; BP diastolic 45–84
[2018-03-04] MEDS: OCTREOTIDE 1,000 MCG in SODIUM CHLORIDE 0.9% 98 ML IV SCH (00:05)
[2018-03-04] MEDS: FENTANYL CITRATE/PF 500 MCG in SODIUM CHLORIDE 0.9% 40 ML IV PRN (00:05)
[2018-03-04] MEDS: PIPERACILLIN/TAZ 2.25G PREMIX 50 ML IV SCH ×3 (00:06→18:33)
[2018-03-04] MEDS: BLOOD SUGAR DIAGNOSTIC STRIP TEST SCH ×6 (00:29→20:09)
[2018-03-04] MEDS: INSULIN LISPRO 100 UNITS/ML SUBCUT SCH ×6 (00:34→20:20)
[2018-03-04] MEDS: ACETYLCYSTEINE 100MG/ML 10% VIAL 4ML INH SCH ×3 (02:01→13:37)
[2018-03-04] MEDS: IPRATROPIUM BROMIDE (0.02%) 0.5MG/2.5ML NEB HHN SCH ×4 (02:02→20:54)
[2018-03-04] MEDS: MORPHINE SULFATE 4 MG/ML CPJ (NOT FOR IM USE) IV PRN ×3 (02:25→17:01)
[2018-03-04] MEDS: GABAPENTIN 300MG CAPSULE PO SCH ×3 (04:59→21:02)
[2018-03-04 06:26] LABS: BASOPHILS % 0.7 % (0.0-2.0); EOSINOPHILS % 9.7 % (0.0-5.0); HEMATOCRIT. 28.2 % (36.0-48.0); HEMOGLOBIN. 9.1 g/dL (12.0-16.0); LYMPHOCYTES % 18.1 % (20.0-50.0); MEAN CORPUSCULAR HEMOGLOBIN 27.4 pg (28.0-32.0); MEAN CORPUSCULAR VOLUME 85.3 fL (81.0-99.0); MEAN PLATELET VOLUME 7.9 fl (7.4-10.4); MONOCYTES % 11.8 % (2.0-8.0); NEUTROPHILS % 59.7 % (40.0-76.0); PLATELET 319 x1000/uL (130-400); RED CELL DISTRIBUTION WIDTH 17.4 % (11.6-14.6)
[2018-03-04] MEDS ORDERED: HEPARIN SODIUM 1,000 UNIT/1ML VIAL IV SCH (08:15)
[2018-03-04 08:41] LABS: BG BASE EXCESS 0.6 mmol/L (-2.0-2.0); BG CARBOXYHEMOGLOBIN 0.3 % (0.5-1.5); BG DEOXYHEMOGLOBIN 2.6 % (0.0-5.0); BG FRACTION INSPIRED OXYGEN 40; BG HCO3 ACT 26.6 mmol/L (22.0-26.0); BG METHEMOGLOBIN 0.2 % (0.0-1.5); BG OXYGEN SATURATION 97.4 % (92.0-98.5); BG OXYHEMOGLOBIN 96.9 % (94.0-97.0); BG PCO2 49.9 mmHg (35.0-45.0); BG PH 7.345 (7.350-7.450); BG PO2 105.7 mmHg (75.0-100.0); BG SAMPLE SITE RIGHT RADIAL; BG TIDAL VOLUME(mL) 450 mL; BG TOTAL HEMOGLOBIN 8.5 g/dL (12.0-18.0); BG VENT MODE VENT - A/C; BG VENT RATE 14 set
[2018-03-04] MEDS: CALCIUM CARBONATE 1250MG TABLET (500MG ELEMENTAL CALCIUM) PO SCH (11:32)
[2018-03-04] MEDS: PANTOPRAZOLE SODIUM 40 MG/VIAL IV SCH ×2 (11:33→17:04)
[2018-03-04 14:37] LABS: CREATINE KINASE 831 IU/L (26-192)
[2018-03-04] MEDS: LACTULOSE 20G/30ML UDC PO SCH (15:21)
[2018-03-04] MEDS: DEXT 5%/0.45% NACL 1000ML 1,000 ML IV SCH (20:20)
[2018-03-05] VITALS (83 sets, daily range): BP systolic 105–166; BP diastolic 22–106
[2018-03-05] MEDS: BLOOD SUGAR DIAGNOSTIC STRIP TEST SCH ×6 (00:01→20:09)
[2018-03-05] MEDS: INSULIN LISPRO 100 UNITS/ML SUBCUT SCH ×6 (00:06→20:20)
[2018-03-05] MEDS: PIPERACILLIN/TAZ 2.25G PREMIX 50 ML IV SCH ×3 (02:04→17:24)
[2018-03-05] MEDS: IPRATROPIUM BROMIDE (0.02%) 0.5MG/2.5ML NEB HHN SCH ×4 (02:23→20:39)
[2018-03-05] MEDS: ACETYLCYSTEINE 100MG/ML 10% VIAL 4ML INH SCH ×3 (02:24→14:49)
[2018-03-05] MEDS: GABAPENTIN 300MG CAPSULE PO SCH ×3 (05:16→21:38)
[2018-03-05 05:49] LABS: BASOPHILS % 0.8 % (0.0-2.0); EOSINOPHILS % 7.8 % (0.0-5.0); HEMATOCRIT. 28.9 % (36.0-48.0); HEMOGLOBIN. 9.4 g/dL (12.0-16.0); MEAN CORPUSCULAR HEMOGLOBIN 27.7 pg (28.0-32.0); MEAN CORPUSCULAR VOLUME 85.1 fL (81.0-99.0); MEAN PLATELET VOLUME 7.6 fl (7.4-10.4); MONOCYTES % 13.9 % (2.0-8.0); NEUTROPHILS % 59.5 % (40.0-76.0); PLATELET 350 x1000/uL (130-400); RED BLOOD CELL COUNT 3.39 mill/uL (4.2-5.4)
[2018-03-05 06:42] LABS: AMMONIA 42 uMol/L (<32)
[2018-03-05] MEDS: CALCIUM CARBONATE 1250MG TABLET (500MG ELEMENTAL CALCIUM) PO SCH (08:39)
[2018-03-05] MEDS: PANTOPRAZOLE SODIUM 40 MG/VIAL IV SCH ×2 (08:39→17:22)
[2018-03-05 09:05] LABS: BG CARBOXYHEMOGLOBIN 0.3 % (0.5-1.5); BG DEOXYHEMOGLOBIN 3.6 % (0.0-5.0); BG FRACTION INSPIRED OXYGEN 40; BG HCO3 ACT 26.2 mmol/L (22.0-26.0); BG METHEMOGLOBIN 0.3 % (0.0-1.5); BG OXYGEN SATURATION 96.4 % (92.0-98.5); BG OXYHEMOGLOBIN 95.8 % (94.0-97.0); BG PCO2 50.4 mmHg (35.0-45.0); BG PH 7.334 (7.350-7.450); BG PO2 90.3 mmHg (75.0-100.0); BG PRESSURE SUPPORT 12; BG SAMPLE SITE RIGHT RADIAL; BG TIDAL VOLUME(mL) 450 mL; BG TOTAL HEMOGLOBIN 10.1 g/dL (12.0-18.0); BG VENT MODE VENT - SIMV; BG VENT RATE 8 set
[2018-03-05] MEDS: LACTULOSE 20G/30ML UDC PO SCH (09:49)
[2018-03-05] MEDS: METOCLOPRAMIDE HCL 10MG/2ML VIAL IV SCH ×2 (12:00→17:20)
[2018-03-05] MEDS: ENOXAPARIN 100MG/ML SYR SUBCUT SCH (17:23)
[2018-03-05] MEDS: DEXT 5%/0.45% NACL 1000ML 1,000 ML IV SCH (20:18)
[2018-03-06] VITALS (61 sets, daily range): BP systolic 105–169; BP diastolic 44–79
[2018-03-06] MEDS: METOCLOPRAMIDE HCL 10MG/2ML VIAL IV SCH ×4 (00:06→17:37)
[2018-03-06] MEDS: BLOOD SUGAR DIAGNOSTIC STRIP TEST SCH ×6 (00:08→20:32)
[2018-03-06] MEDS: INSULIN LISPRO 100 UNITS/ML SUBCUT SCH ×6 (00:08→20:19)
[2018-03-06] MEDS: ACETYLCYSTEINE 100MG/ML 10% VIAL 4ML INH SCH (01:00)
[2018-03-06] MEDS: PIPERACILLIN/TAZ 2.25G PREMIX 50 ML IV SCH ×3 (01:32→17:57)
[2018-03-06] MEDS: IPRATROPIUM BROMIDE (0.02%) 0.5MG/2.5ML NEB HHN SCH ×4 (02:02→20:58)
[2018-03-06] MEDS: GABAPENTIN 300MG CAPSULE PO SCH ×3 (05:26→22:14)
[2018-03-06 05:30] LABS: HEMOGLOBIN. 9.2 g/dL (12.0-16.0); MEAN CORPUSCULAR HEMOGLOBIN 27.8 pg (28.0-32.0); MEAN PLATELET VOLUME 7.6 fl (7.4-10.4); PLATELET 352 x1000/uL (130-400); RED CELL DISTRIBUTION WIDTH 17.6 % (11.6-14.6)
[2018-03-06 05:33] LABS: INR 1.7; PROTHROMBIN TIME 16.9 sec (9.1-11.1)
[2018-03-06 06:07] LABS: PHOSPHORUS 7.4 mg/dL (2.5-4.9)
[2018-03-06 09:02] LABS: BG BASE EXCESS -4.7 mmol/L (-2.0-2.0); BG DEOXYHEMOGLOBIN 2.4 % (0.0-5.0); BG FRACTION INSPIRED OXYGEN 40; BG HCO3 ACT 20.5 mmol/L (22.0-26.0); BG OXYGEN SATURATION 97.6 % (92.0-98.5); BG OXYHEMOGLOBIN 97.6 % (94.0-97.0); BG PCO2 38.6 mmHg (35.0-45.0); BG PH 7.344 (7.350-7.450); BG PRESSURE SUPPORT 8; BG SAMPLE SITE RIGHT RADIAL; BG TIDAL VOLUME(mL) 450 mL; BG TOTAL HEMOGLOBIN 9.9 g/dL (12.0-18.0); BG VENT MODE VENT - SIMV; BG VENT RATE 8 set
[2018-03-06] MEDS: LACTULOSE 20G/30ML UDC PO SCH (09:19)
[2018-03-06] MEDS: CALCIUM CARBONATE 1250MG TABLET (500MG ELEMENTAL CALCIUM) PO SCH (09:19)
[2018-03-06] MEDS: PANTOPRAZOLE SODIUM 40 MG/VIAL IV SCH ×2 (09:19→17:37)
[2018-03-06 09:29] LABS: PLATELET ESTIMATE NORMAL
[2018-03-06] MEDS: ACETAMINOPHEN 325MG TABLET PO PRN ×2 (09:36→17:38)
[2018-03-06] MEDS ORDERED: VANCOMYCIN 750 MG PREMIX 150 ML IV SCH (14:00)
[2018-03-06] MEDS: ENOXAPARIN 100MG/ML SYR SUBCUT SCH (17:39)
[2018-03-06] MEDS: DEXT 5%/0.45% NACL 1000ML 1,000 ML IV SCH (20:31)
[2018-03-06 21:30] LABS: BG BASE EXCESS -1.7 mmol/L (-2.0-2.0); BG CARBOXYHEMOGLOBIN 0.4 % (0.5-1.5); BG DEOXYHEMOGLOBIN 1.9 % (0.0-5.0); BG FRACTION INSPIRED OXYGEN 40; BG HCO3 ACT 22.1 mmol/L (22.0-26.0); BG METHEMOGLOBIN 0.3 % (0.0-1.5); BG OXYGEN SATURATION 98.1 % (92.0-98.5); BG OXYHEMOGLOBIN 97.4 % (94.0-97.0); BG PCO2 34.4 mmHg (35.0-45.0); BG PH 7.426 (7.350-7.450); BG PO2 111.9 mmHg (75.0-100.0); BG PRESSURE SUPPORT 8; BG SAMPLE SITE LEFT RADIAL; BG TIDAL VOLUME(mL) 450 mL; BG TOTAL HEMOGLOBIN 11.2 g/dL (12.0-18.0); BG VENT MODE VENT - SIMV; BG VENT RATE 4 set
[2018-03-07] VITALS (45 sets, daily range): BP systolic 100–164; BP diastolic 53–101
[2018-03-07] MEDS: BLOOD SUGAR DIAGNOSTIC STRIP TEST SCH ×6 (00:10→20:18)
[2018-03-07] MEDS: INSULIN LISPRO 100 UNITS/ML SUBCUT SCH ×6 (00:10→20:18)
[2018-03-07] MEDS: METOCLOPRAMIDE HCL 10MG/2ML VIAL IV SCH ×4 (00:10→17:33)
[2018-03-07] MEDS: PIPERACILLIN/TAZ 2.25G PREMIX 50 ML IV SCH ×3 (01:32→17:33)
[2018-03-07] MEDS: IPRATROPIUM BROMIDE (0.02%) 0.5MG/2.5ML NEB HHN SCH ×4 (02:30→20:39)
[2018-03-07 05:17] LABS: HEMATOCRIT. 30.5 % (36.0-48.0); MEAN CORPUSCULAR VOLUME 85.3 fL (81.0-99.0); MEAN PLATELET VOLUME 7.8 fl (7.4-10.4); PLATELET 393 x1000/uL (130-400); RED BLOOD CELL COUNT 3.58 mill/uL (4.2-5.4); RED CELL DISTRIBUTION WIDTH 17.5 % (11.6-14.6)
[2018-03-07] MEDS: GABAPENTIN 300MG CAPSULE PO SCH ×3 (05:49→21:14)
[2018-03-07 07:16] LABS: PLATELET ESTIMATE NORMAL
[2018-03-07 07:50] LABS: BG BASE EXCESS -2.9 mmol/L (-2.0-2.0); BG CARBOXYHEMOGLOBIN 0.4 % (0.5-1.5); BG DEOXYHEMOGLOBIN 3.2 % (0.0-5.0); BG METHEMOGLOBIN 0.4 % (0.0-1.5); BG OXYGEN SATURATION 96.8 % (92.0-98.5); BG PCO2 38.7 mmHg (35.0-45.0); BG PH 7.373 (7.350-7.450); BG PO2 97.7 mmHg (75.0-100.0); BG SAMPLE SITE RIGHT RADIAL; BG TIDAL VOLUME(mL) 450 mL; BG VENT MODE VENT - SIMV; BG VENT RATE 4 set
[2018-03-07] MEDS: LACTULOSE 20G/30ML UDC PO SCH (08:48)
[2018-03-07] MEDS: PANTOPRAZOLE SODIUM 40 MG/VIAL IV SCH ×2 (08:48→16:45)
[2018-03-07] MEDS: CALCIUM CARBONATE 1250MG TABLET (500MG ELEMENTAL CALCIUM) PO SCH (08:48)
[2018-03-07 11:11] LABS: BG BASE EXCESS -3.6 mmol/L (-2.0-2.0); BG CARBOXYHEMOGLOBIN 0.2 % (0.5-1.5); BG DEOXYHEMOGLOBIN 5.1 % (0.0-5.0); BG FRACTION INSPIRED OXYGEN 40; BG HCO3 ACT 21.4 mmol/L (22.0-26.0); BG METHEMOGLOBIN 0.3 % (0.0-1.5); BG OXYGEN SATURATION 94.9 % (92.0-98.5); BG OXYHEMOGLOBIN 94.4 % (94.0-97.0); BG PCO2 38.7 mmHg (35.0-45.0); BG PH 7.361 (7.350-7.450); BG PRESSURE SUPPORT 8; BG SAMPLE SITE RIGHT RADIAL; BG TOTAL HEMOGLOBIN 10.9 g/dL (12.0-18.0); BG VENT MODE VENT - CPAP
[2018-03-07] MEDS ORDERED: RACEPINEPHRINE 2.25% 0.5ML NEB VIAL HHN SCH (12:00)
[2018-03-07 14:27] LABS: BG BASE EXCESS -5.1 mmol/L (-2.0-2.0); BG CARBOXYHEMOGLOBIN 0.6 % (0.5-1.5); BG DEOXYHEMOGLOBIN 5.9 % (0.0-5.0); BG FRACTION INSPIRED OXYGEN 45; BG HCO3 ACT 20.2 mmol/L (22.0-26.0); BG METHEMOGLOBIN 0.3 % (0.0-1.5); BG OXYHEMOGLOBIN 93.2 % (94.0-97.0); BG PCO2 38.2 mmHg (35.0-45.0); BG PH 7.341 (7.350-7.450); BG PO2 74.1 mmHg (75.0-100.0); BG SAMPLE SITE RIGHT RADIAL; BG TOTAL HEMOGLOBIN 11.4 g/dL (12.0-18.0); BG VENT MODE MASK - AEROSOL
[2018-03-07] MEDS: ENOXAPARIN 100MG/ML SYR SUBCUT SCH (16:45)
[2018-03-07] MEDS: ACETAMINOPHEN 650MG/20.3ML UDC NG PRN (16:45)
[2018-03-07 17:05] LABS: BG BASE EXCESS -3.7 mmol/L (-2.0-2.0); BG BILEVEL POS AIRWAY PRESSURE 15/5; BG CARBOXYHEMOGLOBIN 0.3 % (0.5-1.5); BG DEOXYHEMOGLOBIN 5.2 % (0.0-5.0); BG HCO3 ACT 21.5 mmol/L (22.0-26.0); BG METHEMOGLOBIN 0.4 % (0.0-1.5); BG OXYGEN SATURATION 94.8 % (92.0-98.5); BG OXYHEMOGLOBIN 94.1 % (94.0-97.0); BG PCO2 39.6 mmHg (35.0-45.0); BG PH 7.353 (7.350-7.450); BG PO2 76.8 mmHg (75.0-100.0); BG SAMPLE SITE RIGHT RADIAL; BG TOTAL HEMOGLOBIN 11.3 g/dL (12.0-18.0); BG VENT MODE MASK - BIPAP; BG VENT RATE 20 set
[2018-03-07] MEDS ORDERED: WARFARIN SODIUM 7.5MG TABLET PO ONE (18:00)
[2018-03-07] MEDS: DEXT 5%/0.45% NACL 1000ML 1,000 ML IV SCH (21:14)
[2018-03-08] VITALS (33 sets, daily range): BP systolic 100–154; BP diastolic 55–108
[2018-03-08] MEDS: INSULIN LISPRO 100 UNITS/ML SUBCUT SCH ×6 (00:17→21:51)
[2018-03-08] MEDS: METOCLOPRAMIDE HCL 10MG/2ML VIAL IV SCH ×4 (00:18→18:21)
[2018-03-08] MEDS: BLOOD SUGAR DIAGNOSTIC STRIP TEST SCH ×6 (00:18→21:02)
[2018-03-08] MEDS: PIPERACILLIN/TAZ 2.25G PREMIX 50 ML IV SCH ×3 (01:29→18:09)
[2018-03-08] MEDS: IPRATROPIUM BROMIDE (0.02%) 0.5MG/2.5ML NEB HHN SCH ×4 (02:01→21:35)
[2018-03-08 05:33] LABS: HEMATOCRIT. 30.4 % (36.0-48.0); MEAN CORPUSCULAR VOLUME 85.3 fL (81.0-99.0); PLATELET 384 x1000/uL (130-400); RED BLOOD CELL COUNT 3.56 mill/uL (4.2-5.4); RED CELL DISTRIBUTION WIDTH 17.5 % (11.6-14.6)
[2018-03-08 05:36] LABS: INR 1.9; PROTHROMBIN TIME 19.3 sec (9.1-11.1)
[2018-03-08] MEDS: GABAPENTIN 300MG CAPSULE PO SCH ×3 (05:46→21:50)
[2018-03-08 08:34] LABS: BG BASE EXCESS -6.3 mmol/L (-2.0-2.0); BG BILEVEL POS AIRWAY PRESSURE 15/5; BG CARBOXYHEMOGLOBIN 0.3 % (0.5-1.5); BG DEOXYHEMOGLOBIN 6.6 % (0.0-5.0); BG FRACTION INSPIRED OXYGEN 50; BG HCO3 ACT 19.4 mmol/L (22.0-26.0); BG METHEMOGLOBIN 0.3 % (0.0-1.5); BG OXYGEN SATURATION 93.4 % (92.0-98.5); BG OXYHEMOGLOBIN 92.8 % (94.0-97.0); BG PCO2 38.8 mmHg (35.0-45.0); BG PH 7.316 (7.350-7.450); BG PO2 72.3 mmHg (75.0-100.0); BG SAMPLE SITE RIGHT RADIAL; BG TOTAL HEMOGLOBIN 10.3 g/dL (12.0-18.0); BG VENT MODE MASK - BIPAP
[2018-03-08] MEDS: PANTOPRAZOLE SODIUM 40 MG/VIAL IV SCH ×2 (08:35→16:32)
[2018-03-08] MEDS: CALCIUM CARBONATE 1250MG TABLET (500MG ELEMENTAL CALCIUM) PO SCH (08:35)
[2018-03-08] MEDS: LACTULOSE 20G/30ML UDC PO SCH (08:35)
[2018-03-08 08:48] LABS: PLATELET ESTIMATE NORMAL
[2018-03-08] MEDS ORDERED: VANCOMYCIN 750 MG PREMIX 150 ML IV SCH (14:00)
[2018-03-08] MEDS: ENOXAPARIN 100MG/ML SYR SUBCUT SCH (16:33)
[2018-03-08] MEDS ORDERED: WARFARIN SODIUM 7.5MG TABLET PO SCH (18:00)
[2018-03-08] MEDS: DEXT 5%/0.45% NACL 1000ML 1,000 ML IV SCH (21:27)
[2018-03-09] VITALS (17 sets, daily range): BP systolic 109–135; BP diastolic 22–70
[2018-03-09] MEDS: METOCLOPRAMIDE HCL 10MG/2ML VIAL IV SCH ×4 (01:16→16:56)
[2018-03-09] MEDS: BLOOD SUGAR DIAGNOSTIC STRIP TEST SCH ×6 (01:18→21:00)
[2018-03-09] MEDS: PIPERACILLIN/TAZ 2.25G PREMIX 50 ML IV SCH ×3 (01:27→16:56)
[2018-03-09] MEDS: INSULIN LISPRO 100 UNITS/ML SUBCUT SCH ×6 (01:27→21:48)
[2018-03-09] MEDS: IPRATROPIUM BROMIDE (0.02%) 0.5MG/2.5ML NEB HHN SCH ×4 (02:36→20:52)
[2018-03-09] MEDS: GABAPENTIN 300MG CAPSULE PO SCH ×3 (06:02→21:47)
[2018-03-09 06:10] LABS: INR 2.2
[2018-03-09 06:23] LABS: HEMATOCRIT. 32.8 % (36.0-48.0); HEMOGLOBIN. 11.1 g/dL (12.0-16.0); MEAN CORPUSCULAR HEMOGLOBIN 28.3 pg (28.0-32.0); MEAN CORPUSCULAR VOLUME 83.9 fL (81.0-99.0); MEAN PLATELET VOLUME 8.2 fl (7.4-10.4); PLATELET 440 x1000/uL (130-400); RED BLOOD CELL COUNT 3.91 mill/uL (4.2-5.4); RED CELL DISTRIBUTION WIDTH 18.1 % (11.6-14.6)
[2018-03-09 06:41] LABS: AMMONIA 31 uMol/L (<32)
[2018-03-09] MEDS: PANTOPRAZOLE SODIUM 40 MG/VIAL IV SCH ×2 (08:54→16:56)
[2018-03-09] MEDS: LACTULOSE 20G/30ML UDC PO SCH (08:54)
[2018-03-09] MEDS: CALCIUM CARBONATE 1250MG TABLET (500MG ELEMENTAL CALCIUM) PO SCH (09:27)
[2018-03-09] MEDS ORDERED: INSULIN GLARGINE UD 100 UNITS/ML SYR SUBCUT SCH ×2 (10:00→22:00)
[2018-03-09 12:29] LABS: ATYPICAL LYMPHOCYTES 1; PLATELET ESTIMATE SLIGHTLY INCREASED
[2018-03-09] MEDS ORDERED: DILTIAZEM HCL 5MG/ML 5ML VIAL IV PRN (15:00)
[2018-03-09] MEDS: DILTIAZEM HCL 30MG TABLET PO SCH (16:55)
[2018-03-09] MEDS ORDERED: WARFARIN SODIUM 7.5MG TABLET PO NR (18:00)
[2018-03-09] MEDS: DEXT 5%/0.45% NACL 1000ML 1,000 ML IV SCH (20:30)
[2018-03-10] VITALS (15 sets, daily range): BP systolic 103–158; BP diastolic 48–99
[2018-03-10] MEDS: METOCLOPRAMIDE HCL 10MG/2ML VIAL IV SCH ×6 (00:13→23:59)
[2018-03-10] MEDS: DILTIAZEM HCL 30MG TABLET PO SCH ×5 (00:13→23:59)
[2018-03-10] MEDS: BLOOD SUGAR DIAGNOSTIC STRIP TEST SCH ×7 (00:19→23:59)
[2018-03-10] MEDS: INSULIN LISPRO 100 UNITS/ML SUBCUT SCH ×6 (00:19→20:53)
[2018-03-10] MEDS: IPRATROPIUM BROMIDE (0.02%) 0.5MG/2.5ML NEB HHN SCH ×4 (02:27→19:50)
[2018-03-10] MEDS: PIPERACILLIN/TAZ 2.25G PREMIX 50 ML IV SCH ×3 (03:06→17:17)
[2018-03-10] MEDS: GABAPENTIN 300MG CAPSULE PO SCH ×3 (05:53→22:00)
[2018-03-10 06:14] LABS: INR 2.4; PROTHROMBIN TIME 23.7 sec (9.1-11.1)
[2018-03-10 06:36] LABS: BASOPHILS % 0.8 % (0.0-2.0); EOSINOPHILS % 7.5 % (0.0-5.0); HEMATOCRIT. 32.7 % (36.0-48.0); HEMOGLOBIN. 10.8 g/dL (12.0-16.0); LYMPHOCYTES % 13.1 % (20.0-50.0); MEAN CORPUSCULAR HEMOGLOBIN 28.1 pg (28.0-32.0); MEAN PLATELET VOLUME 7.8 fl (7.4-10.4); MONOCYTES % 13.5 % (2.0-8.0); NEUTROPHILS % 65.1 % (40.0-76.0); PLATELET 444 x1000/uL (130-400); RED BLOOD CELL COUNT 3.85 mill/uL (4.2-5.4); RED CELL DISTRIBUTION WIDTH 18.4 % (11.6-14.6)
[2018-03-10] MEDS: CALCIUM CARBONATE 1250MG TABLET (500MG ELEMENTAL CALCIUM) PO SCH (09:00)
[2018-03-10] MEDS: LACTULOSE 20G/30ML UDC PO SCH ×2 (09:00→15:32)
[2018-03-10] MEDS: PANTOPRAZOLE SODIUM 40 MG/VIAL IV SCH ×2 (09:00→17:18)
[2018-03-10] MEDS ORDERED: HEPARIN SODIUM 1,000 UNIT/1ML VIAL IV NR (10:15)
[2018-03-10] MEDS: INSULIN GLARGINE UD 100 UNITS/ML SYR SUBCUT SCH ×2 (11:02→22:07)
[2018-03-10] MEDS: DEXT 5%/0.45% NACL 1000ML 1,000 ML IV SCH ×2 (12:55→20:30)
[2018-03-10 14:33] LABS: AMMONIA 71 uMol/L (<32)
[2018-03-11] VITALS (17 sets, daily range): BP systolic 106–139; BP diastolic 43–88
[2018-03-11] MEDS: IPRATROPIUM BROMIDE (0.02%) 0.5MG/2.5ML NEB HHN SCH ×4 (01:21→20:54)
[2018-03-11] MEDS: PIPERACILLIN/TAZ 2.25G PREMIX 50 ML IV SCH ×3 (01:31→17:02)
[2018-03-11] MEDS: METOCLOPRAMIDE HCL 10MG/2ML VIAL IV SCH ×3 (05:11→17:02)
[2018-03-11] MEDS: GABAPENTIN 300MG CAPSULE PO SCH ×3 (05:11→20:48)
[2018-03-11] MEDS: DILTIAZEM HCL 30MG TABLET PO SCH ×3 (05:12→17:04)
[2018-03-11] MEDS: BLOOD SUGAR DIAGNOSTIC STRIP TEST SCH ×5 (05:12→20:48)
[2018-03-11] MEDS: INSULIN LISPRO 100 UNITS/ML SUBCUT SCH ×6 (05:16→20:52)
[2018-03-11 05:47] LABS: INR 2.7; PROTHROMBIN TIME 26.6 sec (9.1-11.1)
[2018-03-11] MEDS: LACTULOSE 20G/30ML UDC PO SCH (09:12)
[2018-03-11] MEDS: PANTOPRAZOLE SODIUM 40 MG/VIAL IV SCH ×3 (09:12→17:02)
[2018-03-11] MEDS: CALCIUM CARBONATE 1250MG TABLET (500MG ELEMENTAL CALCIUM) PO SCH (09:35)
[2018-03-11] MEDS: INSULIN GLARGINE UD 100 UNITS/ML SYR SUBCUT SCH ×2 (10:37→20:46)
[2018-03-11 11:17] LABS: HEMOGLOBIN 10.7 g/dL (12.0-16.0); MEAN CORPUSCULAR HEMOGLOBIN 28.3 pg (28.0-32.0); MEAN CORPUSCULAR VOLUME 84.2 fL (81.0-99.0); PLATELET 462 x1000/uL (130-400); RED CELL DISTRIBUTION WIDTH 17.6 % (11.6-14.6)
[2018-03-11 11:33] LABS: CHLORIDE 91 mEq/L (98-107)
[2018-03-11 11:42] LABS: AMMONIA 40 uMol/L (<32)
[2018-03-12] VITALS (10 sets, daily range): BP systolic 102–156; BP diastolic 47–74
[2018-03-12] MEDS: BLOOD SUGAR DIAGNOSTIC STRIP TEST SCH ×5 (00:30→23:37)
[2018-03-12] MEDS: INSULIN LISPRO 100 UNITS/ML SUBCUT SCH ×6 (00:30→23:37)
[2018-03-12] MEDS: DILTIAZEM HCL 30MG TABLET PO SCH ×5 (01:59→23:37)
[2018-03-12] MEDS: METOCLOPRAMIDE HCL 10MG/2ML VIAL IV SCH ×5 (01:59→23:36)
[2018-03-12] MEDS: IPRATROPIUM BROMIDE (0.02%) 0.5MG/2.5ML NEB HHN SCH ×4 (02:33→20:48)
[2018-03-12] MEDS: GABAPENTIN 300MG CAPSULE PO SCH ×3 (06:00→21:41)
[2018-03-12 07:29] LABS: AMMONIA 14 uMol/L (<32)
[2018-03-12 07:31] LABS: INR 2.5; PROTHROMBIN TIME 24.8 sec (9.1-11.1)
[2018-03-12 07:57] LABS: EOSINOPHILS % 5.9 % (0.0-5.0); HEMATOCRIT. 32.9 % (36.0-48.0); HEMOGLOBIN. 10.8 g/dL (12.0-16.0); LYMPHOCYTES % 10.6 % (20.0-50.0); MEAN CORPUSCULAR HEMOGLOBIN 27.7 pg (28.0-32.0); MEAN CORPUSCULAR VOLUME 84.6 fL (81.0-99.0); MEAN PLATELET VOLUME 7.9 fl (7.4-10.4); MONOCYTES % 14.5 % (2.0-8.0); PLATELET 489 x1000/uL (130-400); RED BLOOD CELL COUNT 3.89 mill/uL (4.2-5.4); RED CELL DISTRIBUTION WIDTH 18.2 % (11.6-14.6)
[2018-03-12] MEDS ORDERED: ENOXAPARIN 100MG/ML SYR SUBCUT SCH (09:00)
[2018-03-12] MEDS: LACTULOSE 20G/30ML UDC PO SCH (09:03)
[2018-03-12] MEDS: CALCIUM CARBONATE 1250MG TABLET (500MG ELEMENTAL CALCIUM) PO SCH (09:03)
[2018-03-12] MEDS: PANTOPRAZOLE SODIUM 40 MG/VIAL IV SCH ×2 (09:03→17:24)
[2018-03-12] MEDS: INSULIN GLARGINE UD 100 UNITS/ML SYR SUBCUT SCH ×2 (09:57→21:42)
[2018-03-12 19:07] LABS: TOTAL IRON BINDING CAPACITY 298 ug/dL (250-450)
[2018-03-13] VITALS (12 sets, daily range): BP systolic 104–143; BP diastolic 55–96
[2018-03-13] MEDS: IPRATROPIUM BROMIDE (0.02%) 0.5MG/2.5ML NEB HHN SCH ×4 (00:56→21:01)
[2018-03-13] MEDS: ACETAMINOPHEN 650MG/20.3ML UDC NG PRN (01:41)
[2018-03-13] MEDS: DILTIAZEM HCL 30MG TABLET PO SCH ×4 (05:36→23:43)
[2018-03-13] MEDS: GABAPENTIN 300MG CAPSULE PO SCH ×3 (05:36→21:43)
[2018-03-13] MEDS: METOCLOPRAMIDE HCL 10MG/2ML VIAL IV SCH ×4 (05:36→23:43)
[2018-03-13] MEDS: BLOOD SUGAR DIAGNOSTIC STRIP TEST SCH ×4 (06:27→23:44)
[2018-03-13] MEDS: INSULIN LISPRO 100 UNITS/ML SUBCUT SCH ×4 (06:27→23:44)
[2018-03-13 07:47] LABS: BASOPHILS % 1.2 % (0.0-2.0); EOSINOPHILS % 8.3 % (0.0-5.0); HEMATOCRIT. 32.9 % (36.0-48.0); HEMOGLOBIN. 10.8 g/dL (12.0-16.0); LYMPHOCYTES % 10.9 % (20.0-50.0); MEAN CORPUSCULAR HEMOGLOBIN 28.3 pg (28.0-32.0); MEAN CORPUSCULAR VOLUME 86.2 fL (81.0-99.0); MEAN PLATELET VOLUME 8.3 fl (7.4-10.4); MONOCYTES % 11.8 % (2.0-8.0); NEUTROPHILS % 67.8 % (40.0-76.0); PLATELET 454 x1000/uL (130-400); RED BLOOD CELL COUNT 3.82 mill/uL (4.2-5.4); RED CELL DISTRIBUTION WIDTH 18.1 % (11.6-14.6)
[2018-03-13 07:54] LABS: AMMONIA 28 uMol/L (<32)
[2018-03-13] MEDS: CALCIUM CARBONATE 1250MG TABLET (500MG ELEMENTAL CALCIUM) PO SCH (08:36)
[2018-03-13] MEDS: PANTOPRAZOLE SODIUM 40 MG/VIAL IV SCH ×2 (08:36→17:27)
[2018-03-13] MEDS: INSULIN GLARGINE UD 100 UNITS/ML SYR SUBCUT SCH ×2 (09:54→21:49)
[2018-03-13] MEDS: LACTULOSE 20G/30ML UDC PO SCH (12:00)
[2018-03-13] MEDS ORDERED: PHYTONADIONE 10MG/ML AMP SUBCUT NR (12:45)
[2018-03-13] MEDS: LACTOBACILLUS GG CAPSULE PO SCH (19:30)
[2018-03-13 19:35] LABS: INR 2.2; PROTHROMBIN TIME 22.1 sec (9.1-11.1)
[2018-03-14] VITALS (12 sets, daily range): BP systolic 115–156; BP diastolic 55–95
[2018-03-14] MEDS: IPRATROPIUM BROMIDE (0.02%) 0.5MG/2.5ML NEB HHN SCH ×4 (01:23→20:50)
[2018-03-14] MEDS: GABAPENTIN 300MG CAPSULE PO SCH ×3 (05:33→20:51)
[2018-03-14] MEDS: DILTIAZEM HCL 30MG TABLET PO SCH ×3 (06:01→17:53)
[2018-03-14] MEDS: METOCLOPRAMIDE HCL 10MG/2ML VIAL IV SCH ×3 (06:02→17:50)
[2018-03-14] MEDS: BLOOD SUGAR DIAGNOSTIC STRIP TEST SCH ×3 (06:02→17:29)
[2018-03-14] MEDS: INSULIN LISPRO 100 UNITS/ML SUBCUT SCH ×6 (06:06→17:52)
[2018-03-14 08:21] LABS: INR 1.6; PROTHROMBIN TIME 15.5 sec (9.1-11.1)
[2018-03-14 08:44] LABS: AMMONIA 23 uMol/L (<32)
[2018-03-14] MEDS ORDERED: ENOXAPARIN 100MG/ML SYR SUBCUT SCH (09:15)
[2018-03-14] MEDS: PANTOPRAZOLE SODIUM 40 MG/VIAL IV SCH ×2 (10:01→17:50)
[2018-03-14] MEDS: CALCIUM CARBONATE 1250MG TABLET (500MG ELEMENTAL CALCIUM) PO SCH (10:01)
[2018-03-14] MEDS: LACTULOSE 20G/30ML UDC PO SCH (10:01)
[2018-03-14] MEDS: LACTOBACILLUS GG CAPSULE PO SCH (10:01)
[2018-03-14] MEDS: DEXT 5%/0.9% NACL 1,000 ML IV SCH (10:10)
[2018-03-14] MEDS: INSULIN GLARGINE UD 100 UNITS/ML SYR SUBCUT SCH ×2 (10:11→22:00)
[2018-03-15] VITALS (20 sets, daily range): BP systolic 107–142; BP diastolic 47–96
[2018-03-15] MEDS: BLOOD SUGAR DIAGNOSTIC STRIP TEST SCH ×5 (00:09→23:55)
[2018-03-15] MEDS: INSULIN LISPRO 100 UNITS/ML SUBCUT SCH ×8 (00:15→23:56)
[2018-03-15] MEDS: DILTIAZEM HCL 30MG TABLET PO SCH ×6 (00:29→23:55)
[2018-03-15] MEDS: METOCLOPRAMIDE HCL 10MG/2ML VIAL IV SCH ×6 (00:30→23:55)
[2018-03-15] MEDS: IPRATROPIUM BROMIDE (0.02%) 0.5MG/2.5ML NEB HHN SCH ×4 (00:35→21:49)
[2018-03-15] MEDS: GABAPENTIN 300MG CAPSULE PO SCH ×3 (05:35→22:40)
[2018-03-15 07:23] LABS: BASOPHILS % 0.9 % (0.0-2.0); EOSINOPHILS % 7.7 % (0.0-5.0); HEMATOCRIT. 32.1 % (36.0-48.0); HEMOGLOBIN. 10.6 g/dL (12.0-16.0); MEAN CORPUSCULAR HEMOGLOBIN 28.3 pg (28.0-32.0); MEAN CORPUSCULAR VOLUME 85.7 fL (81.0-99.0); MEAN PLATELET VOLUME 8.6 fl (7.4-10.4); MONOCYTES % 12.3 % (2.0-8.0); NEUTROPHILS % 68.1 % (40.0-76.0); PLATELET 410 x1000/uL (130-400); RED BLOOD CELL COUNT 3.74 mill/uL (4.2-5.4); RED CELL DISTRIBUTION WIDTH 17.9 % (11.6-14.6)
[2018-03-15] MEDS: PANTOPRAZOLE SODIUM 40 MG/VIAL IV SCH ×2 (08:16→17:26)
[2018-03-15] MEDS: DEXT 5%/0.9% NACL 1,000 ML IV SCH (08:17)
[2018-03-15] MEDS: CALCIUM CARBONATE 1250MG TABLET (500MG ELEMENTAL CALCIUM) PO SCH (09:00)
[2018-03-15] MEDS: LACTOBACILLUS GG CAPSULE PO SCH (09:00)
[2018-03-15] MEDS: LACTULOSE 20G/30ML UDC PO SCH (09:00)
[2018-03-15 09:22] LABS: INR 1.1; PARTIAL THROMBOPLASTIN TIME 29.8 sec (23.4-31.0); PROTHROMBIN TIME 11.2 sec (9.1-11.1)
[2018-03-15] MEDS: INSULIN GLARGINE UD 100 UNITS/ML SYR SUBCUT SCH ×2 (09:59→23:57)
[2018-03-15] MEDS ORDERED: LIDOCAINE HCL 1% 20ML VIAL (Pyxis) INJ ONE ×2 (14:12→14:40)
[2018-03-15] MEDS ORDERED: SODIUM BICARBONATE 4% (2.4MEQ) 5ML VIAL IV ONE (14:12)
[2018-03-15] MEDS ORDERED: FENTANYL CITRATE/PF 50MCG/ML 2ML VIAL ONE (14:25)
[2018-03-15] MEDS ORDERED: FENTANYL CITRATE/PF 50MCG/ML 2ML VIAL IV ONE (14:45)
[2018-03-15] MEDS ORDERED: CEFAZOLIN 1000MG PREMIX 50 ML IV SCH (16:00)
[2018-03-15] MEDS ORDERED: WARFARIN SODIUM 5MG TABLET PO SCH (19:00)
[2018-03-15] MEDS ORDERED: WARFARIN SODIUM 10MG TABLET PO NR (20:00)
[2018-03-15] MEDS: ENOXAPARIN 100MG/ML SYR SUBCUT SCH (20:40)
[2018-03-15] MEDS: ACETAMINOPHEN 650MG/20.3ML UDC NG PRN (20:43)
[2018-03-16] VITALS (12 sets, daily range): BP systolic 105–158; BP diastolic 61–79
[2018-03-16] MEDS: IPRATROPIUM BROMIDE (0.02%) 0.5MG/2.5ML NEB HHN SCH ×3 (02:39→12:38)
[2018-03-16] MEDS: METOCLOPRAMIDE HCL 10MG/2ML VIAL IV SCH ×3 (06:15→18:48)
[2018-03-16] MEDS: DILTIAZEM HCL 30MG TABLET PO SCH ×3 (06:15→18:49)
[2018-03-16] MEDS: DEXT 5%/0.9% NACL 1,000 ML IV SCH (06:15)
[2018-03-16] MEDS: GABAPENTIN 300MG CAPSULE PO SCH ×2 (06:15→14:33)
[2018-03-16] MEDS: BLOOD SUGAR DIAGNOSTIC STRIP TEST SCH ×3 (06:16→18:49)
[2018-03-16] MEDS: INSULIN LISPRO 100 UNITS/ML SUBCUT SCH ×6 (06:17→18:00)
[2018-03-16 07:02] LABS: INR 1.2; PROTHROMBIN TIME 11.9 sec (9.1-11.1)
[2018-03-16 07:06] LABS: BASOPHILS % 0.8 % (0.0-2.0); EOSINOPHILS % 4.7 % (0.0-5.0); HEMATOCRIT. 33.5 % (36.0-48.0); HEMOGLOBIN. 10.8 g/dL (12.0-16.0); LYMPHOCYTES % 12.7 % (20.0-50.0); MEAN CORPUSCULAR HEMOGLOBIN 27.9 pg (28.0-32.0); MEAN CORPUSCULAR VOLUME 86.1 fL (81.0-99.0); MEAN PLATELET VOLUME 8.7 fl (7.4-10.4); MONOCYTES % 12.2 % (2.0-8.0); NEUTROPHILS % 69.6 % (40.0-76.0); PLATELET 387 x1000/uL (130-400); RED BLOOD CELL COUNT 3.89 mill/uL (4.2-5.4); RED CELL DISTRIBUTION WIDTH 17.8 % (11.6-14.6)
[2018-03-16 07:07] LABS: AMMONIA 15 uMol/L (<32)
[2018-03-16] MEDS: PANTOPRAZOLE SODIUM 40 MG/VIAL IV SCH ×2 (08:38→17:19)
[2018-03-16] MEDS: CALCIUM CARBONATE 1250MG TABLET (500MG ELEMENTAL CALCIUM) PO SCH (08:38)
[2018-03-16] MEDS: LACTULOSE 20G/30ML UDC PO SCH (08:38)
[2018-03-16] MEDS: LACTOBACILLUS GG CAPSULE PO SCH (08:38)
[2018-03-16] MEDS: INSULIN GLARGINE UD 100 UNITS/ML SYR SUBCUT SCH (12:21)
[2018-03-16] MEDS ORDERED: WARFARIN SODIUM 4MG TABLET PO NR (18:00)
[2018-03-16] MEDS: ENOXAPARIN 100MG/ML SYR SUBCUT SCH (20:30)
[2018-03-17] MEDS ORDERED: DOCUSATE SODIUM SUGAR FREE 100MG/10ML UDC NG SCH (09:00)
== END 2018-03-16 21:02 | DRG 853 ==
LOC: ER 18:44 → 6WST 02-28 03:11 → ENRESERV 02-28 06:28 → MICUNO 02-28 20:13 → 3WST 03-08 12:50
PROVIDERS: ADMIT Internal Medicine; ATTEND Internal Medicine
PROC: 5A1955Z Respiratory Ventilation, Greater than 96 Consecutive Hours (ICD-10-PCS; principal; 2018-02-28)
PROC: 5A12012 Performance of Cardiac Output, Single, Manual (ICD-10-PCS; 2018-02-28)
PROC: 0BH17EZ Insertion of Endotracheal Airway into Trachea, Via Natural or Artificial Opening (ICD-10-PCS; 2018-02-28)
PROC: 06H03DZ Insertion of Intraluminal Device into Inferior Vena Cava, Percutaneous Approach (ICD-10-PCS; 2018-03-01)
PROC: B5191ZZ Fluoroscopy of Inferior Vena Cava using Low Osmolar Contrast (ICD-10-PCS; 2018-03-01)
PROC: 02H633Z Insertion of Infusion Device into Right Atrium, Percutaneous Approach (ICD-10-PCS; 2018-03-01)
PROC: B2141ZZ Fluoroscopy of Right Heart using Low Osmolar Contrast (ICD-10-PCS; 2018-03-01)
PROC: B244ZZZ Ultrasonography of Right Heart (ICD-10-PCS; 2018-03-01)
PROC: 30233L1 Transfusion of Nonautologous Fresh Plasma into Peripheral Vein, Percutaneous Approach (ICD-10-PCS; 2018-03-01)
PROC: 30233N1 Transfusion of Nonautologous Red Blood Cells into Peripheral Vein, Percutaneous Approach (ICD-10-PCS; 2018-03-01)
PROC: 30233K1 Transfusion of Nonautologous Frozen Plasma into Peripheral Vein, Percutaneous Approach (ICD-10-PCS; 2018-03-01)
PROC: 5A1D70Z Performance of Urinary Filtration, Intermittent, Less than 6 Hours Per Day (ICD-10-PCS; 2018-03-02)
PROC: 5A1D70Z Performance of Urinary Filtration, Intermittent, Less than 6 Hours Per Day (ICD-10-PCS; 2018-03-04)
PROC: 5A1D70Z Performance of Urinary Filtration, Intermittent, Less than 6 Hours Per Day (ICD-10-PCS; 2018-03-06)
PROC: 5A09357 Assistance with Respiratory Ventilation, Less than 24 Consecutive Hours, Continuous Positive Airway Pressure (ICD-10-PCS; 2018-03-07)
PROC: 5A09357 Assistance with Respiratory Ventilation, Less than 24 Consecutive Hours, Continuous Positive Airway Pressure (ICD-10-PCS; 2018-03-08)
PROC: 5A1D70Z Performance of Urinary Filtration, Intermittent, Less than 6 Hours Per Day (ICD-10-PCS; 2018-03-08)
PROC: 5A1D70Z Performance of Urinary Filtration, Intermittent, Less than 6 Hours Per Day (ICD-10-PCS; 2018-03-10)
PROC: 5A1D70Z Performance of Urinary Filtration, Intermittent, Less than 6 Hours Per Day (ICD-10-PCS; 2018-03-11)
PROC: 0JH63XZ Insertion of Tunneled Vascular Access Device into Chest Subcutaneous Tissue and Fascia, Percutaneous Approach (ICD-10-PCS; 2018-03-15)
PROC: 02HV33Z Insertion of Infusion Device into Superior Vena Cava, Percutaneous Approach (ICD-10-PCS; 2018-03-15)
PROC: B5181ZA Fluoroscopy of Superior Vena Cava using Low Osmolar Contrast, Guidance (ICD-10-PCS; 2018-03-15)
PROC: 5A1D70Z Performance of Urinary Filtration, Intermittent, Less than 6 Hours Per Day (ICD-10-PCS; 2018-03-15)
DX: A41.9 Sepsis, unspecified organism (principal); J96.00 Acute respiratory failure, unspecified whether with hypoxia or hypercapnia; I50.43 Acute on chronic combined systolic (congestive) and diastolic (congestive) heart failure; J15.20 Pneumonia due to staphylococcus, unspecified; J69.0 Pneumonitis due to inhalation of food and vomit; N18.6 End stage renal disease; N17.0 Acute kidney failure with tubular necrosis; I49.01 Ventricular fibrillation; J15.3 Pneumonia due to streptococcus, group B; I46.9 Cardiac arrest, cause unspecified; E46 Unspecified protein-calorie malnutrition; I42.9 Cardiomyopathy, unspecified; N39.0 Urinary tract infection, site not specified; D68.59 Other primary thrombophilia; I13.2 Hypertensive heart and chronic kidney disease with heart failure and with stage 5 chronic kidney disease, or end stage renal disease; D68.9 Coagulation defect, unspecified; K92.2 Gastrointestinal hemorrhage, unspecified; J44.0 Chronic obstructive pulmonary disease with (acute) lower respiratory infection; I82.412 Acute embolism and thrombosis of left femoral vein; R79.89 Other specified abnormal findings of blood chemistry; I48.91 Unspecified atrial fibrillation; D50.0 Iron deficiency anemia secondary to blood loss (chronic); E78.2 Mixed hyperlipidemia; F17.200 Nicotine dependence, unspecified, uncomplicated; I27.20 Pulmonary hypertension, unspecified; K31.84 Gastroparesis; E11.43 Type 2 diabetes mellitus with diabetic autonomic (poly)neuropathy; E11.65 Type 2 diabetes mellitus with hyperglycemia; K76.0 Fatty (change of) liver, not elsewhere classified; E11.22 Type 2 diabetes mellitus with diabetic chronic kidney disease; R16.1 Splenomegaly, not elsewhere classified; I34.9 Nonrheumatic mitral valve disorder, unspecified; B96.20 Unspecified Escherichia coli [E. coli] as the cause of diseases classified elsewhere; J44.9 Chronic obstructive pulmonary disease, unspecified; Z79.4 Long term (current) use of insulin; Z99.2 Dependence on renal dialysis; Z95.2 Presence of prosthetic heart valve; Z92.3 Personal history of irradiation; Z92.21 Personal history of antineoplastic chemotherapy; Z86.73 Personal history of transient ischemic attack (TIA), and cerebral infarction without residual deficits; Z85.3 Personal history of malignant neoplasm of breast; Z88.8 Allergy status to other drugs, medicaments and biological substances; Z79.899 Other long term (current) drug therapy; Z79.01 Long term (current) use of anticoagulants; Z68.32 Body mass index [BMI] 32.0-32.9, adult
CPT/HCPCS: 36415; 36556; 36558; 36589; 36600; 37191; 70450; 71045; 74018; 76700; 76937; 77001; 78580; 80048; 80051; 80053; 80061; 80076; 80202; 80305; 81003; 82140; 82270; 82375; 82550; 82553; 82607; 82728; 82746; 82805; 82962; 83036; 83540; 83550; 83605; 83735; 83880; 84100; 84145; 84439; 84443; 84478; 84484; 85007; 85014; 85018; 85025; 85027; 85379; 85610; 85730; 86705; 86709; 86803; 86850; 86900; 86920; 86927; 87040; 87070; 87077; 87086; 87186; 87340; 92610; 92950; 93005; 93306; 93970; 94002; 94003; 94640; 94660; 94667; 96374; 96375; 97110; 97163; 97164; 97167; 97530; 99152; 99153; 99285; A6261; C1750; C1752; C1769; C1880; C9113; J0282; J0330; J0690; J1200; J1642; J1644; J1650; J1815; J1940; J2250; J2270; J2354; J2543; J2704; J2765; J3010; J3370; J3430; J3490; J7030; J7040; J7042; J7050; J7060; J7608; P9016; P9017; Q9967

== ENCOUNTER 2018-04-05 09:45 | Inpatient (IN) | payer MEDICARE, MEDICAID ==
[~2018-04-05] VITALS: Ht 160 cm; Wt 84.8 kg
[~2018-04-05 09:45] MED LIST changes: -LANTUSUD SUBCUT
[2018-04-05 10:56] LABS: HEMATOCRIT. 30.4 % (36.0-48.0); HEMOGLOBIN. 9.7 g/dL (12.0-16.0); MEAN CORPUSCULAR HEMOGLOBIN 27.9 pg (28.0-32.0); MEAN CORPUSCULAR VOLUME 87.4 fL (81.0-99.0); MEAN PLATELET VOLUME 8.2 fl (7.4-10.4); PLATELET 322 x1000/uL (130-400); RED BLOOD CELL COUNT 3.47 mill/uL (4.2-5.4)
[2018-04-05 11:04] LABS: CHLORIDE 97 mEq/L (98-107)
[2018-04-05 11:06] LABS: INR 3.8; PROTHROMBIN TIME 37.5 sec (9.1-11.1)
[2018-04-05 11:22] LABS: PLATELET ESTIMATE NORMAL
[2018-04-05] MEDS ORDERED: MAGNESIUM/ALUMINUM HYDROXIDE/SIMETHICONE 30ML UDC PO PRN (13:15)
[2018-04-05] MEDS ORDERED: ACETAMINOPHEN 650MG/20.3ML UDC GT PRN (13:15)
[2018-04-05] MEDS ORDERED: ONDANSETRON HCL 4MG/2ML INJ IV PRN (13:15)
[2018-04-05] MEDS ORDERED: ACETAMINOPHEN 650MG SUPP PR PRN (13:15)
[2018-04-05] MEDS ORDERED: ACETAMINOPHEN 325MG TABLET PO PRN (13:15)
[2018-04-05 16:46] VITALS: BP 86/51
[2018-04-05 16:55] VITALS: BP 106/48
[2018-04-05 17:09] VITALS: BP 106/48
[2018-04-05] MEDS: WARFARIN SODIUM 3MG TABLET PO SCH (17:51)
[2018-04-05] MEDS ORDERED: DEXTROSE 50% WATER 50ML SYRINGE IV PRN (18:30)
[2018-04-05 20:00] VITALS: BP 123/60
[2018-04-05] MEDS: BLOOD SUGAR DIAGNOSTIC STRIP TEST SCH (20:50)
[2018-04-05] MEDS: INSULIN LISPRO 100 UNITS/ML SUBCUT SCH (20:57)
[2018-04-05] MEDS: CALCIUM CARBONATE 1250MG TABLET (500MG ELEMENTAL CALCIUM) PO SCH (20:57)
[2018-04-05] MEDS: GABAPENTIN 300MG CAPSULE PO SCH (20:58)
[2018-04-05] MEDS: DILTIAZEM HCL 30MG TABLET PO SCH (23:07)
[2018-04-06] VITALS: BP 102/49
[2018-04-06 01:06] LABS: CREATINE KINASE MB FRACTION 1.6 ng/mL (0.5-3.6)
[2018-04-06 04:01] VITALS: BP 109/64
[2018-04-06] MEDS: DILTIAZEM HCL 30MG TABLET PO SCH ×3 (06:16→21:03)
[2018-04-06 06:56] LABS: HEMOGLOBIN. 10.2 g/dL (12.0-16.0); MEAN CORPUSCULAR HEMOGLOBIN 27.9 pg (28.0-32.0); MEAN CORPUSCULAR VOLUME 87.9 fL (81.0-99.0); MEAN PLATELET VOLUME 8.2 fl (7.4-10.4); PLATELET 282 x1000/uL (130-400); RED BLOOD CELL COUNT 3.64 mill/uL (4.2-5.4); RED CELL DISTRIBUTION WIDTH 19.2 % (11.6-14.6)
[2018-04-06] MEDS: BLOOD SUGAR DIAGNOSTIC STRIP TEST SCH ×4 (07:03→20:57)
[2018-04-06 07:31] LABS: CHLORIDE 98 mEq/L (98-107)
[2018-04-06 08:00] VITALS: BP_SYST 107; BP_SYST 108; BP_DIAS 54; BP_DIAS 55
[2018-04-06 08:04] LABS: HDL CHOLESTEROL 31 mg/dL (40-59); LDL CHOLESTEROL 281 mg/dL (5-100); T4 FREE 1.48 ng/dL (0.76-1.46)
[2018-04-06] MEDS: NICOTINE 7MG PATCH TOP SCH (08:21)
[2018-04-06] MEDS: CALCIUM CARBONATE 1250MG TABLET (500MG ELEMENTAL CALCIUM) PO SCH ×2 (08:22→17:28)
[2018-04-06] MEDS: INSULIN LISPRO 100 UNITS/ML SUBCUT SCH ×4 (08:22→21:03)
[2018-04-06] MEDS: GABAPENTIN 300MG CAPSULE PO SCH ×2 (08:22→21:03)
[2018-04-06 11:04] LABS: AMMONIA 17 uMol/L (<32)
[2018-04-06 11:21] LABS: ETHANOL BLOOD < 10 mg/dL; T4 FREE 1.42 ng/dL (0.76-1.46)
[2018-04-06 11:31] LABS: FOLIC ACID (FOLATE) SERUM >20 ng/mL ng/mL (>5.38); VITAMIN B12 SERUM 527 pg/mL (211-911)
[2018-04-06] MEDS: HYDROCODONE/ACETAMINOPHEN 5/325MG TABLET PO PRN ×2 (12:28→17:30)
[2018-04-06 12:30] VITALS: BP 106/62
[2018-04-06 12:44] LABS: PLATELET ESTIMATE NORMAL
[2018-04-06 16:00] VITALS: BP 110/54
[2018-04-06 16:46] LABS: HEPATITIS B SURFACE ANTIGEN NEGATIVE
[2018-04-06 17:14] LABS: HEPATITIS B CORE AB IGM NEGATIVE
[2018-04-06 17:15] LABS: HEPATITIS A AB IGM NEGATIVE (NEGATIVE)
[2018-04-06] MEDS: WARFARIN SODIUM 3MG TABLET PO SCH (17:30)
[2018-04-06 20:00] VITALS: BP 111/43
[2018-04-07] VITALS: BP 104/40
[2018-04-07 04:00] VITALS: BP 116/61
[2018-04-07] MEDS: BLOOD SUGAR DIAGNOSTIC STRIP TEST SCH ×4 (06:11→20:41)
[2018-04-07 07:26] LABS: PROTHROMBIN TIME 46.8 sec (9.1-11.1)
[2018-04-07] MEDS: DILTIAZEM HCL 30MG TABLET PO SCH ×3 (07:36→22:00)
[2018-04-07 07:45] LABS: HEMATOCRIT. 30.9 % (36.0-48.0); HEMOGLOBIN. 9.9 g/dL (12.0-16.0); MEAN CORPUSCULAR HEMOGLOBIN 28.4 pg (28.0-32.0); MEAN CORPUSCULAR VOLUME 88.3 fL (81.0-99.0); MEAN PLATELET VOLUME 8.2 fl (7.4-10.4); RED CELL DISTRIBUTION WIDTH 19.1 % (11.6-14.6)
[2018-04-07 07:56] LABS: INR 4.8
[2018-04-07 08:00] VITALS: BP 104/52
[2018-04-07] MEDS: GABAPENTIN 300MG CAPSULE PO SCH ×2 (08:25→20:39)
[2018-04-07] MEDS: CALCIUM CARBONATE 1250MG TABLET (500MG ELEMENTAL CALCIUM) PO SCH ×2 (08:25→17:27)
[2018-04-07] MEDS: NICOTINE 7MG PATCH TOP SCH (08:27)
[2018-04-07] MEDS: INSULIN LISPRO 100 UNITS/ML SUBCUT SCH ×4 (08:27→20:41)
[2018-04-07] MEDS: HYDROCODONE/ACETAMINOPHEN 5/325MG TABLET PO PRN ×2 (10:07→18:21)
[2018-04-07 12:00] VITALS: BP 99/70
[2018-04-07 14:18] LABS: PLATELET ESTIMATE NORMAL
[2018-04-07 14:19] LABS: PLATELET 274 x1000/uL (130-400)
[2018-04-07 16:00] VITALS: BP 102/72
[2018-04-07 20:00] VITALS: BP 106/62
[2018-04-08] VITALS: BP 120/72
[2018-04-08 04:00] VITALS: BP 134/56
[2018-04-08 06:04] LABS: PROTHROMBIN TIME 42.5 sec (9.1-11.1)
[2018-04-08 06:17] LABS: HEMATOCRIT. 29.8 % (36.0-48.0); HEMOGLOBIN. 9.6 g/dL (12.0-16.0); MEAN CORPUSCULAR HEMOGLOBIN 28.5 pg (28.0-32.0); MEAN PLATELET VOLUME 8.1 fl (7.4-10.4); PLATELET 264 x1000/uL (130-400); RED BLOOD CELL COUNT 3.39 mill/uL (4.2-5.4); RED CELL DISTRIBUTION WIDTH 19.4 % (11.6-14.6)
[2018-04-08] MEDS: BLOOD SUGAR DIAGNOSTIC STRIP TEST SCH ×2 (06:23→12:36)
[2018-04-08] MEDS: DILTIAZEM HCL 30MG TABLET PO SCH ×2 (06:24→13:36)
[2018-04-08 06:44] LABS: INR 4.3
[2018-04-08] MEDS: INSULIN LISPRO 100 UNITS/ML SUBCUT SCH ×2 (07:45→12:39)
[2018-04-08] MEDS: HYDROCODONE/ACETAMINOPHEN 5/325MG TABLET PO PRN ×2 (07:47→13:57)
[2018-04-08 08:00] VITALS: BP 129/60
[2018-04-08] MEDS: GABAPENTIN 300MG CAPSULE PO SCH (08:31)
[2018-04-08] MEDS: NICOTINE 7MG PATCH TOP SCH (08:31)
[2018-04-08] MEDS: CALCIUM CARBONATE 1250MG TABLET (500MG ELEMENTAL CALCIUM) PO SCH (08:31)
[2018-04-08 12:00] VITALS: BP 133/62
[2018-04-08 13:50] VITALS: BP 133/62
[2018-04-08 13:57] VITALS: BP 133/62
[2018-04-08 14:10] LABS: PLATELET ESTIMATE NORMAL
[2018-04-13 19:06] LABS: BARBITURATE SCREEN Negative ug/mL (Cutoff:0.1); BENZODIAZEPINE SCREEN Negative ng/mL (Cutoff:20); OPIATES SCREEN ++POSITIVE++ ng/mL (Cutoff:5); PHENCYCLIDINE SCREEN Negative ng/mL (Cutoff:8)
== END 2018-04-08 14:20 | DRG 91 ==
LOC: ER 09:45 → 6WST 12:49 → EDBEDREQSVC 12:52 → EDBEDREQ 12:52 → ENRESERV 15:18
PROVIDERS: ADMIT Internal Medicine; ATTEND Internal Medicine
PROC: 5A1D70Z Performance of Urinary Filtration, Intermittent, Less than 6 Hours Per Day (ICD-10-PCS; 2018-04-06)
PROC: 5A1D70Z Performance of Urinary Filtration, Intermittent, Less than 6 Hours Per Day (ICD-10-PCS; principal; 2018-04-07)
DX: G92 Toxic encephalopathy (principal); N18.6 End stage renal disease; K85.90 Acute pancreatitis without necrosis or infection, unspecified; I50.20 Unspecified systolic (congestive) heart failure; I13.2 Hypertensive heart and chronic kidney disease with heart failure and with stage 5 chronic kidney disease, or end stage renal disease; I42.9 Cardiomyopathy, unspecified; G93.1 Anoxic brain damage, not elsewhere classified; D64.9 Anemia, unspecified; I48.2 Chronic atrial fibrillation; J44.9 Chronic obstructive pulmonary disease, unspecified; E78.5 Hyperlipidemia, unspecified; R53.81 Other malaise; G62.9 Polyneuropathy, unspecified; R26.9 Unspecified abnormalities of gait and mobility; F03.90 Unspecified dementia, unspecified severity, without behavioral disturbance, psychotic disturbance, mood disturbance, and anxiety; E11.22 Type 2 diabetes mellitus with diabetic chronic kidney disease; E78.00 Pure hypercholesterolemia, unspecified; I25.10 Atherosclerotic heart disease of native coronary artery without angina pectoris; I27.20 Pulmonary hypertension, unspecified; R13.10 Dysphagia, unspecified; Z79.01 Long term (current) use of anticoagulants; Z85.3 Personal history of malignant neoplasm of breast; Z86.718 Personal history of other venous thrombosis and embolism; Z86.73 Personal history of transient ischemic attack (TIA), and cerebral infarction without residual deficits; Z95.2 Presence of prosthetic heart valve; Z99.2 Dependence on renal dialysis; Z88.8 Allergy status to other drugs, medicaments and biological substances; Z79.84 Long term (current) use of oral hypoglycemic drugs
CPT/HCPCS: 36415; 71045; 80048; 80061; 80307; 82140; 82550; 82553; 82607; 82746; 82962; 83036; 83605; 84145; 84439; 84443; 84481; 84484; 86705; 86709; 86803; 87340; 92610; 93005; 93970; 97162; 97166; 99285; G0482; J1815; J7030

== ENCOUNTER 2018-04-08 14:28 | Inpatient (IN) | payer MEDICARE, MEDICAID ==
[~2018-04-08] VITALS: Ht 160 cm; Wt 84.8 kg
[2018-04-08 14:28] VITALS: BP 114/51
[2018-04-08 15:00] VITALS: BP 114/51
[2018-04-08] MEDS ORDERED: ACETAMINOPHEN 650MG SUPP PR PRN (16:45)
[2018-04-08] MEDS ORDERED: DEXTROSE 50% WATER 50ML SYRINGE IV PRN (16:45)
[2018-04-08] MEDS ORDERED: ONDANSETRON HCL 4MG TABLET PO PRN (16:45)
[2018-04-08] MEDS ORDERED: ACETAMINOPHEN 650MG/20.3ML UDC PO PRN ×2 (16:45)
[2018-04-08] MEDS ORDERED: MAGNESIUM/ALUMINUM HYDROXIDE/SIMETHICONE 30ML UDC PO PRN (16:45)
[2018-04-08] MEDS: BLOOD SUGAR DIAGNOSTIC STRIP TEST SCH ×2 (17:35→21:11)
[2018-04-08] MEDS: CALCIUM CARBONATE 1250MG TABLET (500MG ELEMENTAL CALCIUM) PO SCH (18:55)
[2018-04-08] MEDS: INSULIN LISPRO 100 UNITS/ML SUBCUT SCH ×2 (19:00→21:11)
[2018-04-08 20:00] VITALS: BP 121/67
[2018-04-08 20:05] VITALS: BP 134/71
[2018-04-08 20:10] VITALS: BP 137/58
[2018-04-08] MEDS: GABAPENTIN 300MG CAPSULE PO SCH (21:10)
[2018-04-08] MEDS: DILTIAZEM HCL 30MG TABLET PO SCH (21:11)
[2018-04-09 06:37] LABS: HEMATOCRIT. 27.9 % (36.0-48.0); HEMOGLOBIN. 9.2 g/dL (12.0-16.0); MEAN CORPUSCULAR HEMOGLOBIN 29.2 pg (28.0-32.0); MEAN CORPUSCULAR VOLUME 88.1 fL (81.0-99.0); MEAN PLATELET VOLUME 8.1 fl (7.4-10.4); PLATELET 226 x1000/uL (130-400); RED BLOOD CELL COUNT 3.16 mill/uL (4.2-5.4); RED CELL DISTRIBUTION WIDTH 18.8 % (11.6-14.6)
[2018-04-09] MEDS: BLOOD SUGAR DIAGNOSTIC STRIP TEST SCH ×4 (06:38→21:19)
[2018-04-09] MEDS: DILTIAZEM HCL 30MG TABLET PO SCH ×3 (06:41→21:19)
[2018-04-09] MEDS: HYDROCODONE/ACETAMINOPHEN 5/325MG TABLET PO PRN ×2 (06:41→17:30)
[2018-04-09] MEDS: INSULIN LISPRO 100 UNITS/ML SUBCUT SCH ×4 (06:42→21:20)
[2018-04-09 07:09] LABS: CHLORIDE 102 mEq/L (98-107)
[2018-04-09 08:00] VITALS: BP 101/47
[2018-04-09 08:05] VITALS: BP 104/48
[2018-04-09 08:10] VITALS: BP 126/58
[2018-04-09] MEDS: CALCIUM CARBONATE 1250MG TABLET (500MG ELEMENTAL CALCIUM) PO SCH ×2 (09:32→18:41)
[2018-04-09] MEDS: GABAPENTIN 300MG CAPSULE PO SCH ×2 (09:32→21:19)
[2018-04-09 13:53] LABS: PLATELET ESTIMATE NORMAL
[2018-04-09] MEDS: NICOTINE 7MG PATCH TD SCH (14:11)
[2018-04-09 16:18] LABS: INR 2.5; PROTHROMBIN TIME 24.8 sec (9.1-11.1)
[2018-04-09] MEDS ORDERED: WARFARIN SODIUM 4MG TABLET PO SCH (18:00)
[2018-04-09 20:00] VITALS: BP 120/56
[2018-04-09] MEDS: INSULIN GLARGINE UD 100 UNITS/ML SYR SUBCUT SCH (21:39)
[2018-04-10] MEDS: BLOOD SUGAR DIAGNOSTIC STRIP TEST SCH ×4 (06:14→21:00)
[2018-04-10] MEDS: DILTIAZEM HCL 30MG TABLET PO SCH ×3 (06:43→22:46)
[2018-04-10] MEDS: INSULIN LISPRO 100 UNITS/ML SUBCUT SCH ×4 (06:45→22:55)
[2018-04-10 08:00] VITALS: BP 116/63
[2018-04-10] MEDS: GABAPENTIN 300MG CAPSULE PO SCH ×2 (08:55→22:44)
[2018-04-10] MEDS: CALCIUM CARBONATE 1250MG TABLET (500MG ELEMENTAL CALCIUM) PO SCH ×2 (08:55→17:36)
[2018-04-10] MEDS: NICOTINE 7MG PATCH TD SCH (08:57)
[2018-04-10 09:05] LABS: INR 2.2; PROTHROMBIN TIME 22.1 sec (9.1-11.1)
[2018-04-10 09:14] LABS: BASOPHILS % 1.5 % (0.0-2.0); EOSINOPHILS % 7.8 % (0.0-5.0); HEMATOCRIT. 32.2 % (36.0-48.0); HEMOGLOBIN. 10.4 g/dL (12.0-16.0); LYMPHOCYTES % 26.2 % (20.0-50.0); MEAN CORPUSCULAR HEMOGLOBIN 28.7 pg (28.0-32.0); MEAN CORPUSCULAR VOLUME 88.5 fL (81.0-99.0); MEAN PLATELET VOLUME 7.9 fl (7.4-10.4); MONOCYTES % 12.2 % (2.0-8.0); NEUTROPHILS % 52.3 % (40.0-76.0); PLATELET 244 x1000/uL (130-400); RED BLOOD CELL COUNT 3.63 mill/uL (4.2-5.4); RED CELL DISTRIBUTION WIDTH 18.8 % (11.6-14.6)
[2018-04-10 10:03] LABS: PHOSPHORUS 1.9 mg/dL (2.5-4.9)
[2018-04-10] MEDS: INSULIN GLARGINE UD 100 UNITS/ML SYR SUBCUT SCH ×2 (10:34→22:54)
[2018-04-10 11:08] LABS: HEPATITIS B SURFACE ANTIGEN NEGATIVE
[2018-04-10 11:13] LABS: FOLIC ACID (FOLATE) SERUM 11.2 ng/mL (>5.38)
[2018-04-10] MEDS ORDERED: WARFARIN SODIUM 4MG TABLET PO SCH (18:30)
[2018-04-10] MEDS ORDERED: WARFARIN SODIUM 5MG TABLET PO SCH (18:45)
[2018-04-10 20:00] VITALS: BP 124/55
[2018-04-10 23:46] LABS: CLARITY URINE CLEAR (CLEAR); COLOR URINE YELLOW (YELLOW); KETONES URINE NEGATIVE (NEGATIVE); LEUKOCYTE ESTERASE URINE 1+ (NEGATIVE); NITRITE URINE NEGATIVE (NEGATIVE); OCCULT BLOOD URINE 2+ (NEGATIVE); PH URINE 6.5 (4.5-8.0); PROTEIN URINE TRACE (NEGATIVE); SPECIFIC GRAVITY URINE 1.007 (1.005-1.030); UROBILINOGEN URINE 0.2 E.U./dL (0.2-1.0)
[2018-04-11] MEDS: DILTIAZEM HCL 30MG TABLET PO SCH ×3 (05:49→21:53)
[2018-04-11] MEDS: BLOOD SUGAR DIAGNOSTIC STRIP TEST SCH ×4 (05:49→21:26)
[2018-04-11] MEDS: INSULIN LISPRO 100 UNITS/ML SUBCUT SCH ×6 (06:40→21:00)
[2018-04-11 06:58] LABS: BASOPHILS % 1.1 % (0.0-2.0); EOSINOPHILS % 4.7 % (0.0-5.0); HEMATOCRIT. 29.3 % (36.0-48.0); HEMOGLOBIN. 9.5 g/dL (12.0-16.0); LYMPHOCYTES % 27.3 % (20.0-50.0); MEAN CORPUSCULAR HEMOGLOBIN 28.2 pg (28.0-32.0); MEAN CORPUSCULAR VOLUME 87.2 fL (81.0-99.0); MEAN PLATELET VOLUME 8.1 fl (7.4-10.4); MONOCYTES % 13.5 % (2.0-8.0); NEUTROPHILS % 53.4 % (40.0-76.0); PLATELET 217 x1000/uL (130-400); RED BLOOD CELL COUNT 3.37 mill/uL (4.2-5.4); RED CELL DISTRIBUTION WIDTH 19.3 % (11.6-14.6)
[2018-04-11 07:04] LABS: PROTHROMBIN TIME 20.1 sec (9.1-11.1)
[2018-04-11 08:00] VITALS: BP 114/54
[2018-04-11] MEDS: CALCIUM CARBONATE 1250MG TABLET (500MG ELEMENTAL CALCIUM) PO SCH ×2 (09:50→18:02)
[2018-04-11] MEDS: GABAPENTIN 300MG CAPSULE PO SCH ×2 (09:50→21:53)
[2018-04-11] MEDS: NICOTINE 7MG PATCH TD SCH (09:50)
[2018-04-11] MEDS ORDERED: POTASSIUM-SODIUM PHOSPHATE POWDER PACKET PO SCH (10:30)
[2018-04-11] MEDS: CYANOCOBALAMIN 1000MCG/ML VIAL IM SCH (11:22)
[2018-04-11] MEDS: INSULIN GLARGINE UD 100 UNITS/ML SYR SUBCUT SCH ×2 (11:39→21:58)
[2018-04-11 12:36] LABS: HEPATITIS B SURFACE ANTIGEN NEGATIVE
[2018-04-11 13:04] LABS: HEPATITIS B CORE AB IGM NEGATIVE
[2018-04-11 13:06] LABS: HEPATITIS A AB IGM NEGATIVE (NEGATIVE)
[2018-04-11] MEDS ORDERED: WARFARIN SODIUM 5MG TABLET PO SCH (18:00)
[2018-04-11] MEDS: HYDROCODONE/ACETAMINOPHEN 5/325MG TABLET PO PRN (18:12)
[2018-04-11 20:00] VITALS: BP 131/53
[2018-04-11] MEDS ORDERED: INSULIN LISPRO 100 UNITS/ML SUBCUT NR (21:30)
[2018-04-11] MEDS ORDERED: INSULIN GLARGINE UD 100 UNITS/ML SYR SUBCUT SCH (22:00)
[2018-04-12] MEDS: HYDROCODONE/ACETAMINOPHEN 5/325MG TABLET PO PRN ×2 (00:06→15:58)
[2018-04-12] MEDS: DILTIAZEM HCL 30MG TABLET PO SCH ×3 (06:00→22:00)
[2018-04-12] MEDS: BLOOD SUGAR DIAGNOSTIC STRIP TEST SCH ×4 (06:37→21:00)
[2018-04-12] MEDS: INSULIN LISPRO 100 UNITS/ML SUBCUT SCH ×7 (06:42→22:17)
[2018-04-12 06:51] LABS: INR 2.1; PROTHROMBIN TIME 20.7 sec (9.1-11.1)
[2018-04-12 06:52] LABS: HEMATOCRIT. 28.1 % (36.0-48.0); HEMOGLOBIN. 9.2 g/dL (12.0-16.0); MEAN CORPUSCULAR HEMOGLOBIN 28.8 pg (28.0-32.0); PLATELET 197 x1000/uL (130-400)
[2018-04-12 07:51] VITALS: BP 111/62
[2018-04-12] MEDS: CYANOCOBALAMIN 1000MCG/ML VIAL IM SCH (09:12)
[2018-04-12] MEDS: GABAPENTIN 300MG CAPSULE PO SCH ×2 (09:12→21:00)
[2018-04-12] MEDS: CALCIUM CARBONATE 1250MG TABLET (500MG ELEMENTAL CALCIUM) PO SCH ×2 (09:12→19:05)
[2018-04-12] MEDS: NICOTINE 7MG PATCH TD SCH (09:12)
[2018-04-12 10:29] LABS: PLATELET ESTIMATE NORMAL
[2018-04-12 13:20] VITALS: BP 130/58
[2018-04-12 15:50] VITALS: BP 128/74
[2018-04-12] MEDS ORDERED: WARFARIN SODIUM 5MG TABLET PO SCH (18:00)
[2018-04-12] MEDS: WARFARIN SODIUM 2MG TABLET PO SCH (19:06)
[2018-04-12] MEDS: WARFARIN SODIUM 5MG TABLET PO SCH (19:06)
[2018-04-12 20:00] VITALS: BP 99/56
[2018-04-12] MEDS: INSULIN GLARGINE UD 100 UNITS/ML SYR SUBCUT SCH (22:16)
[2018-04-13] MEDS: BLOOD SUGAR DIAGNOSTIC STRIP TEST SCH ×4 (05:46→21:50)
[2018-04-13] MEDS: DILTIAZEM HCL 30MG TABLET PO SCH ×3 (05:47→21:48)
[2018-04-13 07:27] LABS: INR 2.1
[2018-04-13 07:47] VITALS: BP 112/55
[2018-04-13 07:48] LABS: HEMATOCRIT. 27.6 % (36.0-48.0); HEMOGLOBIN. 8.9 g/dL (12.0-16.0); MEAN CORPUSCULAR HEMOGLOBIN 28.4 pg (28.0-32.0); MEAN CORPUSCULAR VOLUME 88.2 fL (81.0-99.0); PLATELET 201 x1000/uL (130-400); RED BLOOD CELL COUNT 3.13 mill/uL (4.2-5.4); RED CELL DISTRIBUTION WIDTH 18.8 % (11.6-14.6)
[2018-04-13 08:14] LABS: PHOSPHORUS 2.6 mg/dL (2.5-4.9)
[2018-04-13] MEDS: GABAPENTIN 300MG CAPSULE PO SCH ×2 (08:31→21:47)
[2018-04-13] MEDS: NICOTINE 7MG PATCH TD SCH (08:32)
[2018-04-13] MEDS: CYANOCOBALAMIN 1000MCG/ML VIAL IM SCH (08:32)
[2018-04-13] MEDS: CALCIUM CARBONATE 1250MG TABLET (500MG ELEMENTAL CALCIUM) PO SCH ×2 (08:32→17:25)
[2018-04-13] MEDS: GLIMEPIRIDE 2MG TABLET PO SCH ×2 (08:32→17:25)
[2018-04-13 08:34] LABS: PLATELET ESTIMATE NORMAL
[2018-04-13] MEDS: INSULIN LISPRO 100 UNITS/ML SUBCUT SCH ×7 (08:40→21:50)
[2018-04-13] MEDS ORDERED: MAGNESIUM 2 G PREMIX 50 ML IV ONE (09:30)
[2018-04-13] MEDS ORDERED: MAGNESIUM SULFATE 2 GM in DEXTROSE 5% WATER 50 ML IV NR (10:30)
[2018-04-13] MEDS ORDERED: SODIUM BICARBONATE 4% (2.4MEQ) 5ML VIAL IV ONE (11:44)
[2018-04-13] MEDS ORDERED: GELATIN SPONGE,ABSORBABLE 12-7MM SPONGE ONE (11:44)
[2018-04-13] MEDS ORDERED: LIDOCAINE HCL 1% 20ML VIAL (Pyxis) INJ ONE (11:44)
[2018-04-13 12:03] LABS: INR 2.1; PARTIAL THROMBOPLASTIN TIME 23.1 sec (23.4-31.0); PROTHROMBIN TIME 20.6 sec (9.1-11.1)
[2018-04-13] MEDS ORDERED: WARFARIN SODIUM 7.5MG TABLET PO ONE (14:30)
[2018-04-13] MEDS: MAGNESIUM OXIDE 400MG TABLET PO SCH (17:26)
[2018-04-13] MEDS: WARFARIN SODIUM 2MG TABLET PO SCH (17:26)
[2018-04-13] MEDS: WARFARIN SODIUM 5MG TABLET PO SCH (17:26)
[2018-04-13 20:00] VITALS: BP 136/68
[2018-04-13] MEDS: INSULIN GLARGINE UD 100 UNITS/ML SYR SUBCUT SCH (21:49)
[2018-04-14] MEDS: DILTIAZEM HCL 30MG TABLET PO SCH ×2 (06:00→14:50)
[2018-04-14] MEDS: BLOOD SUGAR DIAGNOSTIC STRIP TEST SCH ×2 (06:42→11:36)
[2018-04-14 07:11] LABS: INR 2.2
[2018-04-14 07:13] LABS: HEMATOCRIT. 27.3 % (36.0-48.0); MEAN CORPUSCULAR HEMOGLOBIN 29.1 pg (28.0-32.0); MEAN CORPUSCULAR VOLUME 88.3 fL (81.0-99.0); MEAN PLATELET VOLUME 7.9 fl (7.4-10.4); PLATELET 213 x1000/uL (130-400); RED BLOOD CELL COUNT 3.09 mill/uL (4.2-5.4)
[2018-04-14 07:44] VITALS: BP 143/56
[2018-04-14] MEDS: INSULIN LISPRO 100 UNITS/ML SUBCUT SCH ×4 (08:53→13:24)
[2018-04-14] MEDS: NICOTINE 7MG PATCH TD SCH (08:56)
[2018-04-14] MEDS: CALCIUM CARBONATE 1250MG TABLET (500MG ELEMENTAL CALCIUM) PO SCH (08:57)
[2018-04-14] MEDS: GABAPENTIN 300MG CAPSULE PO SCH (08:57)
[2018-04-14] MEDS: MAGNESIUM OXIDE 400MG TABLET PO SCH (08:57)
[2018-04-14] MEDS: GLIMEPIRIDE 2MG TABLET PO SCH (08:57)
[2018-04-14 12:07] LABS: PLATELET ESTIMATE NORMAL
[2018-04-14 14:15] VITALS: BP 143/56
[2018-04-14 14:18] LABS: 25-HYDROXY VITAMIN D3 4.6 ng/mL (.)
== END 2018-04-14 15:30 | disposition home health service (06) | DRG 91 ==
PROVIDERS: ADMIT Physical Medicine & Rehabilitation Spinal Cord Injury Medicine; ATTEND Internal Medicine
PROC: 5A1D70Z Performance of Urinary Filtration, Intermittent, Less than 6 Hours Per Day (ICD-10-PCS; principal; 2018-04-10)
DX: G92 Toxic encephalopathy (principal); N18.6 End stage renal disease; K85.90 Acute pancreatitis without necrosis or infection, unspecified; N17.9 Acute kidney failure, unspecified; I42.9 Cardiomyopathy, unspecified; I13.2 Hypertensive heart and chronic kidney disease with heart failure and with stage 5 chronic kidney disease, or end stage renal disease; I48.0 Paroxysmal atrial fibrillation; E11.42 Type 2 diabetes mellitus with diabetic polyneuropathy; E78.5 Hyperlipidemia, unspecified; E78.00 Pure hypercholesterolemia, unspecified; D64.9 Anemia, unspecified; R53.81 Other malaise; E11.22 Type 2 diabetes mellitus with diabetic chronic kidney disease; I50.9 Heart failure, unspecified; I25.10 Atherosclerotic heart disease of native coronary artery without angina pectoris; J44.9 Chronic obstructive pulmonary disease, unspecified; N64.4 Mastodynia; R13.10 Dysphagia, unspecified; E11.65 Type 2 diabetes mellitus with hyperglycemia; I48.2 Chronic atrial fibrillation; R26.9 Unspecified abnormalities of gait and mobility; R41.89 Other symptoms and signs involving cognitive functions and awareness; Z99.2 Dependence on renal dialysis; Z95.2 Presence of prosthetic heart valve; Z79.01 Long term (current) use of anticoagulants; Z92.3 Personal history of irradiation; Z85.3 Personal history of malignant neoplasm of breast; Z92.21 Personal history of antineoplastic chemotherapy; Z86.74 Personal history of sudden cardiac arrest; Z87.891 Personal history of nicotine dependence; Z86.718 Personal history of other venous thrombosis and embolism; Z86.73 Personal history of transient ischemic attack (TIA), and cerebral infarction without residual deficits; Z79.84 Long term (current) use of oral hypoglycemic drugs; Z79.4 Long term (current) use of insulin; Z82.49 Family history of ischemic heart disease and other diseases of the circulatory system
CPT/HCPCS: 36415; 36589; 80048; 82306; 82575; 82607; 82728; 82746; 82962; 83540; 83550; 83735; 84100; 84134; 84443; 84630; 86705; 86709; 86803; 87340; 92523; 92610; 93970; 97110; 97112; 97116; 97150; 97162; 97166; 97530; 97535; G0515; J1815; J3420; J3475; J3490; J7060; A4315